=== PATIENT | male | born 1935 | race Caucasian/White ===

== ENCOUNTER 2016-09-09 08:00 | Outpatient (CLI) | payer MEDICARE, OTHER | END 2016-09-09 08:01 | disposition home or self-care (01) | DX: K50.90 Crohn's disease, unspecified, without complications (principal); E78.5 Hyperlipidemia, unspecified; R41.3 Other amnesia ==

== ENCOUNTER 2016-12-15 14:13 | Outpatient (CLI) | payer MEDICARE, OTHER | END 2016-12-15 23:59 | disposition EMS.NT | DX: M25.561 Pain in right knee (principal); W01.0XXA Fall on same level from slipping, tripping and stumbling without subsequent striking against object, initial encounter; Y93.01 Activity, walking, marching and hiking; Y92.481 Parking lot as the place of occurrence of the external cause ==

== ENCOUNTER 2017-03-28 09:54 | Emergency (ER) | payer MEDICARE, OTHER ==
[2017-03-28] MEDS ORDERED: SODIUM CHLORIDE FLUSH 0.9% 10 ML SYRINGE IVP ONE (10:09)
--- NOTE | 2017-03-28 10:20 | XRAY Preliminary Report ---
Exam: XR Chest 1 View IMPRESSION: No acute intrathoracic plain film abnormality. [facility] SITE ID: [id number]
--- NOTE | 2017-03-28 10:23 | XRAY Report ---
EXAM: CHEST RADIOGRAPHY EXAM DATE: 03/28/2017 10:12 AM. CLINICAL HISTORY: Chest pain. COMPARISON: None. TECHNIQUE: 1 view. FINDINGS: Lungs/Pleura: No focal opacities evident. No pleural effusion. No pneumothorax. Mediastinum: Within exam limitations, cardiomediastinal contour is normal. Other: None. IMPRESSION: No acute intrathoracic plain film abnormality. [facility] Referring Provider Line: [phone] SITE ID: [id number]
--- NOTE | 2017-03-28 10:26 | ED Physician Documentation ---
History of Present Illness - Stated complaint Stated Complaint: CHEST PAIN - Chief complaint Chief Complaint: Cardiac - Additonal information Additional information: hx from pt 81 male hx CAD s/p stents awoke this AM with ant chest pain - described as a steady pain, not throbbing stabbing sharp or tearing no NV no sweats alsways a bit SOA but no change from baseline resolved after two hr, possibly due to pt taking alllegra no recent fever cough NVD or leg pain swelling no recent travel feels fine now Review of Systems Constitutional: denies: Fever, Chills Cardiac: reports: Chest pain / pressure. denies: Palpitations Respiratory: denies: Dyspnea (n) GI: denies: Abdominal Pain, Nausea, Vomiting Musculoskeletal: denies: Extremity swelling, Joint swelling Neurologic: denies: Generalized weakness, Focal weakness Endocrine: denies: Easy bruising / bleeding Immunocompromised: denies: Immunocompromised PD PAST MEDICAL HISTORY - Past Medical History Past Medical History: Yes Cardiovascular: Hypertension, High cholesterol, [place] Respiratory: Sleep apnea Endocrine/Autoimmune: None GI: GERD, Crohn's disease : Other HEENT: None Musculoskeletal: None Derm: None Other Past Medical History: crohn's. prostate cancer with seeds but no sx - Past Surgical History Past Surgical History: Yes General: Appendectomy, Bowel surgery, Colonoscopy - Present Medications Home Medications: Ambulatory Orders Medication Instructions Recorded Confirmed Atorvastatin Calcium [Lipitor] 20 mg PO DAILY 01/20/15 01/21/15 Cholecalciferol [Vitamin D3] 1,000 unit PO DAILY 01/20/15 01/21/15 Cyanocobalamin/Folic Acid [Vitamin 5,000 mg PO DAILY 01/20/15 01/21/15 Y73-[id number] Acid Tablet] Fenofibrate Nanocrystallized 160 mg PO DAILY 01/20/15 01/21/15 [Triglide] Hydrocodone/Acetaminophen [Vicodin 1 each PO ONCE PRN 01/20/15 01/20/15 5-300 mg Tablet] Iron 65 mg PO DAILY 01/20/15 01/21/15 Mesalamine [Delzicol] 1,600 mg PO BID 01/20/15 01/21/15 Metoprolol Succinate [Toprol Xl] 50 mg PO DAILY 01/20/15 01/21/15 Multivitamin [Multivitamins] 1 each PO DAILY 01/20/15 01/21/15 Omeprazole 20 mg PO BID 01/20/15 01/21/15 Turmeric Root Extract [Turmeric] 500 mg PO DAILY 01/20/15 01/21/15 - Allergies Allergies/Adverse Reactions: Allergies Allergy/AdvReac Type Severity Reaction Status Date / Time latex Allergy Rash Verified 01/20/15 14:45 Penicillins Allergy Rash Verified 01/20/15 14:45 - Social History Does the pt smoke?: No Smoking Status: Never smoker Does the pt drink ETOH?: Yes Does the pt have substance abuse?: No PD ED PE NORMAL - Vitals Vital signs reviewed: Yes - General General: Alert and oriented X 3 - HEENT HEENT: Atraumatic - Neck Neck: Supple, no meningeal sign - Cardiac Cardiac: RRR - Respiratory Respiratory: No respiratory distress, Clear bilaterally - Abdomen Abdomen: Soft, Non tender - Back Back: Other (small bandaid low L spine from injection yesterday, no redness or swelling) - Extremities Extremities: No edema, No calf tenderness / cord - Neuro Neuro: Alert and oriented X 3, No motor deficit - Psych Psych: Normal mood Results - Vitals Vitals: Vital Signs - 24 hr 03/28/17 03/28/17 03/28/17 10:00 10:03 10:35 Temperature 36.8 C Heart Rate 78 73 Respiratory 18 18 Rate Blood Pressure 144/67 H 145/62 H Blood Pressure 143/61 H [Left] Blood Pressure 159/76 H [Right] O2 Saturation 97 03/28/17 03/28/17 11:35 12:03 Temperature Heart Rate 67 63 Respiratory 18 18 Rate Blood Pressure 135/54 H 106/73 Blood Pressure [Left] Blood Pressure [Right] O2 Saturation 97 98 Oxygen O2 Source Room air - EKG (time done) 1004 Rate: Dmitri (73) Rhythm: NSR [place]: Normal Intervals: Normal [place] QRS: Normal Ischemia: Non specific changes - Labs Labs: Laboratory Tests 03/28/17 03/28/17 03/28/17 10:34 10:34 10:34 WBC 12.7 H RBC 4.87 Hgb 13.8 L Hct 40.9 L MCV 84.1 MCH 28.3 MCHC 33.7 RDW 13.5 Plt Count 225 MPV 7.8 Neut # 10.5 H Lymph # 1.4 L [place] # 0.9 Eos # 0.0 Baso # 0.0 Absolute Nucleated RBC 0.00 Nucleated RBCs 0.0 Sodium 137 Potassium 3.7 Chloride 101 Carbon Dioxide 24 Anion Gap 12.0 BUN 18 Creatinine 1.1 Estimated GFR (MDRD) 64 L Glucose 174 H Calcium 9.5 Total Bilirubin 0.7 AST 26 ALT 18 Alkaline Phosphatase 41 L Troponin I < 0.04 Total Protein 7.6 Albumin 4.0 Globulin 3.6 Albumin/Globulin Ratio 1.1 Lipase 32 03/28/17 11:59 WBC RBC Hgb Hct MCV MCH MCHC RDW Plt Count MPV Neut # Lymph # [place] # Eos # Baso # Absolute Nucleated RBC Nucleated RBCs Sodium Potassium Chloride Carbon Dioxide Anion Gap BUN Creatinine Estimated GFR (MDRD) Glucose Calcium Total Bilirubin AST ALT Alkaline Phosphatase Troponin I < 0.04 Total Protein Albumin Globulin Albumin/Globulin Ratio Lipase - Rads (name of study) CXR Radiology: See rad report (neg) Departure - Departure Disposition: Home, Self Care Clinical Impression: Chest pain Condition: Good Instructions: ED Chest Pain Atypical Unkn Cause Follow-Up: Miguel Angel Rust DO [Primary Care Provider] - Comments: Your heart checked out fine - the EKG and two sets of blood tests do not indicate the pain was a heart attack The xray also did not show any sign or an aneurysm tear of your aorta And based on your exam i do not think your have a blood clot in your lungs I am not sure what did cause the pain, but given the reassuring work up, and since you are feeling better, I think it is safe for you to go home Your blood sugar was a bit high today -m please follow up with your PMD to be tested for diabetes Also your blood pressure was elevated and your should have your PMD recheck that too
[2017-03-28 10:42] LABS: BASOPHILS % (AUTO) 0.3 %; HCT - HEMATOCRIT 40.9 % (42.0-52.0); HGB - HEMOGLOBIN 13.8 g/dL (14.0-18.0); LYMPHOCYTES # (AUTO) 1.4 10^3/uL (1.5-3.5); LYMPHOCYTES % (AUTO) 10.8 %; MEAN CORPUSCULAR HEMOGLOBIN 28.3 pg (27.0-31.0); MEAN CORPUSCULAR HGB CONC 33.7 g/dL (32.0-36.0); MEAN CORPUSCULAR VOLUME 84.1 fL (80.0-94.0); MEAN PLATELET VOLUME 7.8 fL (7.4-11.4); MONOCYTES # (AUTO) 0.9 10^3/uL (0.0-1.0); MONOCYTES % (AUTO) 6.7 %; NEUTROPHILS # (AUTO) 10.5 10^3/uL (1.5-6.6); NEUTROPHILS % (AUTO) 82.2 %; RED BLOOD COUNT 4.87 10^6/uL (4.70-6.10); RED CELL DISTRIBUTION WIDTH 13.5 % (12.0-15.0); UNCORRECTED WHITE BLOOD COUNT 12.7 x10^3/uL; WHITE BLOOD COUNT 12.7 x10^3/uL (4.8-10.8)
[2017-03-28 10:58] LABS: ALBUMIN/GLOBULIN RATIO 1.1 (1.0-2.2); BILIRUBIN,TOTAL 0.7 mg/dL (0.2-1.0); CALCIUM 9.5 mg/dL (8.5-10.3); CREATININE 1.1 mg/dL (0.6-1.2); POTASSIUM 3.7 mmol/L (3.5-5.0); TOTAL PROTEIN 7.6 g/dL (6.7-8.2)
[2017-03-28 12:52] VITALS: BP 127/54
== END 2017-03-28 12:53 | disposition home or self-care (01) ==
LOC: ED 09:54
DX: R07.9 Chest pain, unspecified (principal); I25.10 Atherosclerotic heart disease of native coronary artery without angina pectoris; Z98.61 Coronary angioplasty status; I10 Essential (primary) hypertension; E78.00 Pure hypercholesterolemia, unspecified; I25.2 Old myocardial infarction; G47.30 Sleep apnea, unspecified; K21.9 Gastro-esophageal reflux disease without esophagitis; K50.90 Crohn's disease, unspecified, without complications; Z85.46 Personal history of malignant neoplasm of prostate; R73.9 Hyperglycemia, unspecified
CPT/HCPCS: 36415; 71010; 80053; 83690; 84484; 85025; 93005; 99284

== ENCOUNTER 2017-04-04 11:29 | Outpatient (CLI) | payer MEDICARE, OTHER ==
[2017-04-04 13:13] LABS: BASOPHILS # (AUTO) 0.1 10^3/uL (0.0-0.1); BASOPHILS % (AUTO) 0.9 %; EOSINOPHILS # (AUTO) 0.2 10^3/uL (0.0-0.7); EOSINOPHILS % (AUTO) 2.1 %; HCT - HEMATOCRIT 43.3 % (42.0-52.0); HGB - HEMOGLOBIN 14.5 g/dL (14.0-18.0); LYMPHOCYTES # (AUTO) 2.5 10^3/uL (1.5-3.5); LYMPHOCYTES % (AUTO) 30.2 %; MEAN CORPUSCULAR HEMOGLOBIN 28.4 pg (27.0-31.0); MEAN CORPUSCULAR HGB CONC 33.5 g/dL (32.0-36.0); MEAN CORPUSCULAR VOLUME 84.8 fL (80.0-94.0); MEAN PLATELET VOLUME 8.1 fL (7.4-11.4); MONOCYTES # (AUTO) 0.9 10^3/uL (0.0-1.0); MONOCYTES % (AUTO) 10.3 %; NEUTROPHILS # (AUTO) 4.7 10^3/uL (1.5-6.6); NEUTROPHILS % (AUTO) 56.5 %; NUCLEATED RED BLOOD CELLS AUTO 0.1 /100WBC; RED CELL DISTRIBUTION WIDTH 13.8 % (12.0-15.0); UNCORRECTED WHITE BLOOD COUNT 8.4 x10^3/uL; WHITE BLOOD COUNT 8.4 x10^3/uL (4.8-10.8)
[2017-04-04 13:43] LABS: BILIRUBIN,DIRECT 0.1 mg/dL (0.1-0.5); BILIRUBIN,TOTAL 0.8 mg/dL (0.2-1.0); CREATININE 1.1 mg/dL (0.6-1.2); TOTAL PROTEIN 7.9 g/dL (6.7-8.2)
== END 2017-04-04 11:30 | disposition home or self-care (01) ==
LOC: LAB.WCP 11:29
PROVIDERS: ATTEND Podiatrist
DX: B35.1 Tinea unguium (principal); B35.3 Tinea pedis
CPT/HCPCS: 36415; 80076; 82565; 84520; 85025

== ENCOUNTER 2018-04-18 14:12 | Outpatient (CLI) | payer MEDICARE, OTHER ==
[2018-04-18 18:53] LABS: BASOPHILS # (AUTO) 0.1 10^3/uL (0.0-0.1); EOSINOPHILS # (AUTO) 0.1 10^3/uL (0.0-0.7); EOSINOPHILS % (AUTO) 1.9 %; HGB - HEMOGLOBIN 14.2 g/dL (14.0-18.0); LYMPHOCYTES # (AUTO) 2.1 10^3/uL (1.5-3.5); LYMPHOCYTES % (AUTO) 29.2 %; MEAN CORPUSCULAR HEMOGLOBIN 28.9 pg (27.0-31.0); MEAN CORPUSCULAR HGB CONC 34.1 g/dL (32.0-36.0); MEAN CORPUSCULAR VOLUME 84.7 fL (80.0-94.0); MEAN PLATELET VOLUME 8.5 fL (7.4-11.4); MONOCYTES # (AUTO) 0.7 10^3/uL (0.0-1.0); MONOCYTES % (AUTO) 9.6 %; NEUTROPHILS # (AUTO) 4.2 10^3/uL (1.5-6.6); NEUTROPHILS % (AUTO) 58.3 %; PLT - PLATELET COUNT 211 10^3/uL (130-450); RED BLOOD COUNT 4.91 10^6/uL (4.70-6.10); WHITE BLOOD COUNT 7.2 x10^3/uL (4.8-10.8)
[2018-04-18 19:15] LABS: HB2 TOTAL 14.9 g/dL; HEMOGLOBIN A1C 0.57 g/dL; HEMOGLOBIN A1C % 5.7 % (4.6-6.2)
[2018-04-18 19:16] LABS: ALBUMIN/GLOBULIN RATIO 1.1 (1.0-2.2); ALKALINE PHOSPHATASE 39 IU/L (42-121); ALT ALANINE AMINOTRANSFERASE 21 IU/L (10-60); AST ASPARTATE AMINOTRANSFERASE 27 IU/L (10-42); BILIRUBIN,TOTAL 1.1 mg/dL (0.2-1.0); BUN - BLOOD UREA NITROGEN 20 mg/dL (6-20); CALCIUM 9.4 mg/dL (8.5-10.3); CARBON DIOXIDE - CO2 26 mmol/L (21-32); CHLORIDE 103 mmol/L (101-111); CHOL/HDL RATIO 3.4 (<5.0); CHOLESTEROL 138 mg/dL; GFR - MDRD 72 (>89); GLUCOSE 122 mg/dL (70-100); HDL CHOLESTEROL 41 mg/dL; LDL CHOLESTEROL,CALCULATED 41 mg/dL; SODIUM 139 mmol/L (135-145); TOTAL PROTEIN 7.5 g/dL (6.7-8.2); VLDL CHOLESTEROL 56 mg/dL
== END 2018-04-18 14:13 | disposition home or self-care (01) ==
LOC: LAB.WCP 14:12
PROVIDERS: ATTEND Family Medicine
DX: R07.89 Other chest pain (principal); R73.01 Impaired fasting glucose; E78.5 Hyperlipidemia, unspecified; G62.9 Polyneuropathy, unspecified; E53.8 Deficiency of other specified B group vitamins; D64.9 Anemia, unspecified
CPT/HCPCS: 36415; 80053; 80061; 82607; 83036; 83721; 85025

== ENCOUNTER 2018-07-05 07:58 | Outpatient (CLI) | payer MEDICARE, OTHER ==
[2018-07-05] MEDS ORDERED: IOVERSOL 320 50 ML VIAL ONE (08:11)
[2018-07-05] MEDS ORDERED: IOPAMIDOL-300 100 ML VIAL ONE (08:11)
[2018-07-05] MEDS ORDERED: IOVERSOL 320 50 ML VIAL PO ONE (09:35)
[2018-07-05] MEDS ORDERED: IOPAMIDOL-300 100 ML VIAL IVP ONE (09:35)
--- NOTE | 2018-07-05 13:16 | Nuclear Medicine Report ---
Reason: NEOPLASM OF UNSPECIFIED BEHAVIOR OF OTHER ORGAN Procedure Date: 07/05/2018 Accession Number: [id number] / [id number] Procedure: NM - Bone Whole Body CPT Code: FULL RESULT: EXAM: BONE SCAN EXAM DATE: 07/05/2018 11:47 AM. CLINICAL HISTORY: Prostate cancer. NEOPLASM OF UNSPECIFIED BEHAVIOR OF OTHER ORGAN. COMPARISON: CT abdomen/pelvis 07/05/2018. TECHNIQUE: Following the intravenous administration of 31.5 mCi of technetium 99m MDP and an appropriate delay, a whole-body scan was performed in anterior and posterior projections. Site-specific spot views of the region of interest were obtained in various projections. FINDINGS: Normal renal radiotracer uptake and bladder activity. Normal soft tissue activity. Overall normal osseous uptake. There is intense focal uptake corresponding to right posterior iliac sclerotic lesion by CT, likely metastatic. IMPRESSION: 1. Intense focal uptake at the right posterior iliac bone, likely metastatic. 2. No other abnormal focal uptake. [facility]
--- NOTE | 2018-07-05 15:13 | CT Report ---
Reason: NEOPLASM OF UNSPECIFIED BEHAVIOR OF OTHER ORGAN Procedure Date: 07/05/2018 Accession Number: [id number] / [id number] Procedure: CT - Chest W/ CPT Code: FULL RESULT: EXAM: CT CHEST EXAM DATE: 07/05/2018 09:18 AM. CLINICAL HISTORY: NEOPLASM OF UNSPECIFIED BEHAVIOR OF OTHER ORGAN. COMPARISONS: None. TECHNIQUE: Routine helical CT imaging was performed through the chest. IV contrast: 100 cc Isovue-300. Reconstructions: Coronal and sagittal. In accordance with CT protocol optimization, one or more of the following dose reduction techniques were utilized for this exam: automated exposure control, adjustment of mA and/or KV based on patient size, or use of iterative reconstructive technique. FINDINGS: Lungs/Pleura: No nodules, bronchial thickening, consolidation, or edema. Pulmonary vasculature appears normal. No pericardial or pleural effusion. No pneumothorax. Mediastinum: No adenopathy or masses. The heart and great vessels appear normal. There are atherosclerotic calcifications of the thoracic aorta and coronary arteries. Bones: No bone lesions. Visualized Abdomen: 1 cm nodule of the left adrenal gland is incompletely evaluated. IMPRESSION: Left adrenal nodule is incompletely evaluated. No suspicious findings in other regards. [facility]
--- NOTE | 2018-07-05 15:25 | CT Report ---
Reason: NEOPLASM OF UNSPECIFIED BEHAVIOR OF OTHER ORGAN Procedure Date: 07/05/2018 Accession Number: [id number] / [id number] Procedure: CT - Abdomen/Pelvis W/ CPT Code: FULL RESULT: EXAM: CT ABDOMEN AND PELVIS EXAM DATE: 07/05/2018 09:18 AM. CLINICAL HISTORY: NEOPLASM OF UNSPECIFIED BEHAVIOR OF OTHER ORGAN. COMPARISONS: Abdomen pelvis CT 08/17/2007. TECHNIQUE: Routine helical CT imaging was performed through the abdomen and pelvis. IV contrast: ISOVUE 300 100mL. Enteric contrast: Yes. Reconstructions: Coronal and sagittal. In accordance with CT protocol optimization, one or more of the following dose reduction techniques were utilized for this exam: automated exposure control, adjustment of mA and/or KV based on patient size, or use of iterative reconstructive technique. FINDINGS: Lung Bases: Unremarkable. Liver: Normal contour. No masses. The liver is diffusely low in attenuation suggesting hepatic steatosis. There is a calcified granuloma of the right lobe of the liver. Gallbladder/Bile Ducts: Prior cholecystectomy. Spleen: Normal. Pancreas: Normal. Adrenal Glands: 1 cm left adrenal nodule Kidneys: Normal. No masses or hydronephrosis. Peritoneal Cavity/Bowel: No free fluid, free air or adenopathy. No masses. There is thickening of the transverse colon. There is thickening of a loop of small bowel in the right lower quadrant. Pelvic Organs: There are prostate radiotherapy seeds. The bladder appears unremarkable otherwise. Vasculature: No aneurysms or other significant abnormality. Bones: There is a sclerotic lesion of the right iliac at the sacroiliac joint, a new finding. IMPRESSION: 1. Right iliac sclerotic lesion is concerning for a metastatic focus. 2. There is thickening of the transverse colon and focal thickening of a loop of small bowel in the right lower quadrant. Correlate clinically for enterocolitis. 3. Left adrenal nodule is incomplete characterized. Consider adrenal CT or MRI. [facility]
== END 2018-07-05 07:59 | disposition home or self-care (01) ==
LOC: DI 07:58
PROVIDERS: ATTEND Internal Medicine Nephrology
DX: E27.9 Disorder of adrenal gland, unspecified (principal); M89.9 Disorder of bone, unspecified; K63.89 Other specified diseases of intestine
CPT/HCPCS: 71260; 74177; 78306; Q9967

== ENCOUNTER 2018-09-07 18:23 | Emergency (ER) | payer MEDICARE, OTHER ==
[2018-09-07 18:37] VITALS: BP 157/120
[2018-09-07] MEDS ORDERED: ONDANSETRON ODT 4 MG TABLET TL STA (19:16)
--- NOTE | 2018-09-07 19:18 | ED Physician Documentation ---
PD HPI ABD PAIN - Stated complaint Stated Complaint: VOMITING/BACK PX - Chief complaint Chief Complaint: Abd Pain - History obtained from History obtained from: Patient - History of Present Illness Timing - onset: Other (About 2 weeks ago he fell and injured the left chest wall. He had x-rays at the time that were reportedly negative but he was treated for an occult rib fracture. He saw his physician 2 days ago and was prescribed what sounds like oxycodone. Today he had 5 episodes of vomiting but denies abdominal pain, diarrhea, or changes in his bowel movements. There is no new chest pain except for the lateral chest wall pain that is improving.) Review of Systems Constitutional: denies: Fever, Chills Cardiac: denies: Palpitations Respiratory: denies: Dyspnea, Cough GI: reports: Nausea, Vomiting. denies: Abdominal Pain, Diarrhea PD PAST MEDICAL HISTORY - Past Medical History Cardiovascular: Hypertension, High cholesterol, [place] Respiratory: Sleep apnea Endocrine/Autoimmune: None GI: GERD, Crohn's disease : Other HEENT: None Musculoskeletal: None Derm: None - Past Surgical History Past Surgical History: Yes General: Cholecystectomy, Appendectomy, Bowel surgery, Colonoscopy Cardiovascular: Other - Present Medications Home Medications: Ambulatory Orders Medication Instructions Recorded Confirmed Atorvastatin Calcium [Lipitor] 20 mg PO DAILY 01/20/15 09/07/18 Cholecalciferol [Vitamin D3] 1,000 unit PO DAILY 01/20/15 09/07/18 Cyanocobalamin/Folic Acid [Vitamin 5,000 mg PO DAILY 01/20/15 09/07/18 O04-Gzutl Acid Tablet] Fenofibrate Nanocrystallized 160 mg PO DAILY 01/20/15 09/07/18 [Triglide] Mesalamine [Delzicol] 1,600 mg PO BID 01/20/15 09/07/18 Metoprolol Succinate [Toprol Xl] 50 mg PO DAILY 01/20/15 09/07/18 Multivitamin [Multivitamins] 1 each PO DAILY 01/20/15 09/07/18 Omeprazole 20 mg PO BID 01/20/15 09/07/18 Ibuprofen [Motrin] 800 mg PO Q8H PRN #30 tablet 08/23/18 09/07/18 Ondansetron Odt [Zofran] 4 mg TL Q6H PRN #14 tablet 09/07/18 oxyCODONE [Roxicodone] 10 mg PO Q6H 09/07/18 09/07/18 - Allergies Allergies/Adverse Reactions: Allergies Allergy/AdvReac Type Severity Reaction Status Date / Time latex Allergy Rash Verified 08/23/18 11:23 Penicillins Allergy Rash Verified 08/23/18 11:23 nitrofurantoin AdvReac Unknown Verified 09/07/18 18:37 [From Macrobid] - Social History Does the pt smoke?: No Smoking Status: Never smoker Does the pt drink ETOH?: Yes Does the pt have substance abuse?: No PD ED PE NORMAL - Vitals Vital signs reviewed: Yes - General General: Alert and oriented X 3, No acute distress - Neck Neck: Supple, no meningeal sign, No bony TTP - Cardiac Cardiac: RRR, No murmur - Respiratory Respiratory: No respiratory distress, Clear bilaterally - Abdomen Abdomen: Normal bowel sounds, Soft, Non tender - Extremities Extremities: No edema, No calf tenderness / cord - Neuro Neuro: Alert and oriented X 3, Normal speech - Psych Psych: Normal mood Results - Vitals Vitals: Vital Signs - 24 hr 09/07/18 09/07/18 18:32 19:56 Temperature 36.4 C L Heart Rate 67 63 Respiratory 18 Rate Blood Pressure 157/120 H O2 Saturation 96 93 Oxygen O2 Source Room air - Rads (name of study) L ribs and chest Radiology: EMP read contemporaneously (Multiple left rib fractures) PD MEDICAL DECISION MAKING - ED course ED course: 83-year-old gentleman with a recent fall, at the time the x-rays were reportedly negative but having persistent pain and now vomiting likely related to the pain medications. He did well after the administration of Zofran here in the x-rays confirmed multiple left-sided rib fractures. Departure - Departure Disposition: 01 Home, Self Care Clinical Impression: Vomiting Qualifiers: Vomiting type: unspecified Vomiting Intractability: non-intractable Nausea presence: with nausea Qualified Code(s): R11.2 - Nausea with vomiting, unspecified Multiple fractures of ribs Qualifiers: Encounter type: initial encounter Fracture type: closed Laterality: left Qualified Code(s): S22.42XA - Multiple fractures of ribs, left side, initial encounter for closed fracture Condition: Good Record reviewed to determine appropriate education?: Yes Instructions: ED Nausea Vomiting, ED Fx Rib Prescriptions: Ondansetron Odt [Zofran] 4 mg TL Q6H PRN #14 tablet PRN Reason: Nausea / Vomiting Comments: Call your doctor to arrange a follow-up appointment, make the next available appointment. In the interim, return anytime if worse or if new symptoms develop. Your blood pressure was elevated today on check into the emergency department. This does not mean that you have hypertension, it is a common phenomenon to come to the emergency department and have elevated blood pressure. I recommend that you see your primary care physician within the week to have it rechecked when you are feeling better.
--- NOTE | 2018-09-07 20:06 | XRAY Report ---
Reason: rib inj Procedure Date: 09/07/2018 Accession Number: [id number] / [id number] Procedure: XR - Ribs w/PA Chest LT CPT Code: FULL RESULT: EXAM: LEFT RIB RADIOGRAPHY EXAM DATE: 09/07/2018 07:41 PM. CLINICAL HISTORY: Trauma, pain. COMPARISON: CHEST 2 VIEW PA/LAT 04/18/2018 1:30 PM. TECHNIQUE: 1 view of the chest and 4 views of the ribs. FINDINGS: Bones: Minimally to nondisplaced fractures of posterior lateral left fifth, sixth, seventh, eighth, and probably ninth ribs. Otherwise unremarkable. Lungs: No consolidation, effusion, or pneumothorax. Localized pleural thickening at the level of left rib fractures. Mediastinum: Heart and mediastinal contours are unremarkable. Upper lobe vessels not distended. Other: None. IMPRESSION: Multiple left rib fractures. [facility]
== END 2018-09-07 20:59 | disposition home or self-care (01) ==
LOC: ED 18:23
DX: R11.2 Nausea with vomiting, unspecified (principal); S22.42XA Multiple fractures of ribs, left side, initial encounter for closed fracture; W19.XXXA Unspecified fall, initial encounter; I10 Essential (primary) hypertension; E78.00 Pure hypercholesterolemia, unspecified; I25.2 Old myocardial infarction
CPT/HCPCS: 71101; 99283; Q0162

== ENCOUNTER 2018-09-27 19:22 | Emergency (ER) | payer MEDICARE, OTHER ==
[2018-09-27] MEDS ORDERED: SODIUM CHLORIDE 0.9% 1,000 ML IV ONE (19:53)
--- NOTE | 2018-09-27 20:08 | ED Physician Documentation ---
History of Present Illness - Stated complaint Stated Complaint: VOMITING/COUGH/FEVER - Chief complaint Chief Complaint: Abd Pain - History obtained from History obtained from: Patient, Family - History of Present Illness Timing: How many days ago (2) Pain level max: 0 Pain level now: 0 - Additonal information Additional information: 83-year-old male with a cough for the past 2-3 days. Fever of 102 last night. Has been lightheaded and dizzy and feeling weak today. No fevers today. No hypoxia. Did have recent rib fractures but is no longer having pain. Did receive his influenza vaccine this year. nothing makes it better or worse. Review of Systems Ten Systems: 10 systems reviewed and negative Constitutional: reports: Fever (102), Chills Ears: denies: Ear pain Nose: reports: Rhinorrhea / runny nose, Congestion Throat: denies: Sore throat Cardiac: denies: Chest pain / pressure Respiratory: reports: Cough GI: denies: Abdominal Pain, Nausea, Vomiting, Diarrhea Skin: denies: Rash Musculoskeletal: denies: Neck pain, Back pain Neurologic: denies: Focal weakness, Numbness, Headache PD PAST MEDICAL HISTORY - Past Medical History Cardiovascular: Hypertension, High cholesterol, [place] Respiratory: Sleep apnea Endocrine/Autoimmune: None GI: GERD, Crohn's disease : Other HEENT: None Musculoskeletal: None Derm: None - Past Surgical History Past Surgical History: Yes General: Cholecystectomy, Appendectomy, Bowel surgery, Colonoscopy Cardiovascular: Other - Present Medications Home Medications: Ambulatory Orders Medication Instructions Recorded Confirmed Atorvastatin Calcium [Lipitor] 20 mg PO DAILY 01/20/15 09/07/18 Cholecalciferol [Vitamin D3] 1,000 unit PO DAILY 01/20/15 09/07/18 Cyanocobalamin/Folic Acid [Vitamin 5,000 mg PO DAILY 01/20/15 09/07/18 T27-Jerze Acid Tablet] Fenofibrate Nanocrystallized 160 mg PO DAILY 01/20/15 09/07/18 [Triglide] Mesalamine [Delzicol] 1,600 mg PO BID 01/20/15 09/07/18 Metoprolol Succinate [Toprol Xl] 50 mg PO DAILY 01/20/15 09/07/18 Multivitamin [Multivitamins] 1 each PO DAILY 01/20/15 09/07/18 Omeprazole 20 mg PO BID 01/20/15 09/07/18 Ibuprofen [Motrin] 800 mg PO Q8H PRN #30 tablet 08/23/18 09/07/18 Ondansetron Odt [Zofran] 4 mg TL Q6H PRN #14 tablet 09/07/18 oxyCODONE [Roxicodone] 10 mg PO Q6H 09/07/18 09/07/18 Ondansetron Odt [Zofran] 4 mg TL Q6H PRN #10 tablet 09/27/18 - Allergies Allergies/Adverse Reactions: Allergies Allergy/AdvReac Type Severity Reaction Status Date / Time latex Allergy Rash Verified 09/27/18 19:28 Penicillins Allergy Rash Verified 09/27/18 19:28 nitrofurantoin AdvReac Unknown Verified 09/27/18 19:28 [From Macrobid] - Social History Does the pt smoke?: No Smoking Status: Never smoker Does the pt drink ETOH?: Yes Does the pt have substance abuse?: No PD ED PE NORMAL - Vitals Vital signs reviewed: Yes - General General: Alert and oriented X 3, No acute distress - HEENT HEENT: Ears normal, Moist mucous membranes, Pharynx benign - Neck Neck: Supple, no meningeal sign - Cardiac Cardiac: RRR, Strong equal pulses - Respiratory Respiratory: No respiratory distress, Clear bilaterally - Abdomen Abdomen: Soft, Non tender, Non distended - Back Back: No spinal TTP - Derm Derm: Warm and dry, No rash - Extremities Extremities: No edema - Neuro Neuro: Alert and oriented X 3 - Psych Psych: Normal mood, Normal affect Results - Vitals Vitals: Vital Signs - 24 hr 09/27/18 09/27/18 19:24 21:17 Temperature 36.5 C 38.0 C H Heart Rate 99 76 Respiratory 16 16 Rate Blood Pressure 164/54 H 125/71 O2 Saturation 94 93 Oxygen O2 Source Room air - Labs Labs: Laboratory Tests 09/27/18 09/27/18 09/27/18 20:15 20:15 20:25 WBC 8.9 RBC 4.48 L Hgb 12.6 L Hct 37.5 L MCV 83.8 MCH 28.1 MCHC 33.5 RDW 14.1 Plt Count 140 MPV 7.8 Neut # (Auto) 7.7 H Lymph # (Auto) 0.5 L [place] # (Auto) 0.5 Eos # (Auto) 0.0 Baso # (Auto) 0.1 Absolute Nucleated RBC 0.00 Nucleated RBC % 0.0 Sodium 133 L Potassium 4.0 Chloride 99 L Carbon Dioxide 24 Anion Gap 10.0 BUN 21 H Creatinine 1.3 H Estimated GFR (MDRD) 53 L Glucose 149 H Calcium 9.1 Total Bilirubin 1.2 H AST 45 H ALT 34 Alkaline Phosphatase 44 Total Protein 7.7 Albumin 3.7 Globulin 4.0 Albumin/Globulin Ratio 0.9 L Lipase 32 Urine Color Urine Clarity Urine pH Ur Specific [place] Urine Protein Urine Glucose (UA) Urine Ketones Urine Occult Blood Urine Nitrite Urine Bilirubin Urine Urobilinogen Ur Leukocyte Esterase Urine RBC Urine WBC Ur Squamous Epith Cells Urine Bacteria Urine Casts Ur Microscopic Review Urine Culture Comments Influenza A (Rapid) POSITIVE H Influenza B (Rapid) Negative 09/27/18 20:50 WBC RBC Hgb Hct MCV MCH MCHC RDW Plt Count MPV Neut # (Auto) Lymph # (Auto) [place] # (Auto) Eos # (Auto) Baso # (Auto) Absolute Nucleated RBC Nucleated RBC % Sodium Potassium Chloride Carbon Dioxide Anion Gap BUN Creatinine Estimated GFR (MDRD) Glucose Calcium Total Bilirubin AST ALT Alkaline Phosphatase Total Protein Albumin Globulin Albumin/Globulin Ratio Lipase Urine Color YELLOW Urine Clarity CLEAR Urine pH 5.5 Ur Specific [place] >=1.030 H Urine Protein 30 H Urine Glucose (UA) NEGATIVE Urine Ketones NEGATIVE Urine Occult Blood SMALL H Urine Nitrite NEGATIVE Urine Bilirubin NEGATIVE Urine Urobilinogen 1 (NORMAL) Ur Leukocyte Esterase NEGATIVE Urine RBC 0-5 Urine WBC 0-3 Ur Squamous Epith Cells NONE SEEN Urine Bacteria None Seen Urine Casts 0-2 Hyaline Casts Ur Microscopic Review INDICATED Urine Culture Comments NOT INDICATED Influenza A (Rapid) Influenza B (Rapid) - Rads (name of study) Chest x-ray Radiology: Prelim report reviewed, EMP read contemporaneously, See rad report (No acute disease) PD MEDICAL DECISION MAKING - ED course Complexity details: reviewed results, re-evaluated patient, considered differential, d/w patient, d/w family ED course: 83-year-old male with influenza A. Feels better after IV fluids. Tolerating p.o. without difficulty here. Will prescribe Zofran for home. No acute findings on chest x-ray. No hypoxia. No respiratory distress. We will have him follow-up with his PCP. Patient requesting to go home at this time. Patient and family counseled regarding signs and symptoms for which I believe and urgent re-evaluation would be necessary. Patient with good understanding of and agreement to plan and is comfortable going home at this time This document was made in part using voice recognition software. While efforts are made to proofread this document, sound alike and grammatical errors may occur. Departure - Departure Disposition: 01 Home, Self Care Clinical Impression: Influenza A Condition: Good Instructions: ED Flu Follow-Up: Miguel Angel Rust DO [Primary Care Provider] - Within 1 week Prescriptions: Ondansetron Odt [Zofran] 4 mg TL Q6H PRN #10 tablet PRN Reason: Nausea / Vomiting Comments: Go home and rest. Drink plenty of fluids. Return if you worsen. Discharge Date/Time: 09/27/18 21:21
[2018-09-27] MEDS ORDERED: ONDANSETRON 4 MG/2 ML VIAL IVP STA (20:22)
[2018-09-27 20:27] LABS: BASOPHILS # (AUTO) 0.1 10^3/uL (0.0-0.1); BASOPHILS % (AUTO) 0.7 %; EOSINOPHILS % (AUTO) 0.4 %; HGB - HEMOGLOBIN 12.6 g/dL (14.0-18.0); LYMPHOCYTES # (AUTO) 0.5 10^3/uL (1.5-3.5); LYMPHOCYTES % (AUTO) 5.9 %; MEAN CORPUSCULAR HEMOGLOBIN 28.1 pg (27.0-31.0); MEAN CORPUSCULAR HGB CONC 33.5 g/dL (32.0-36.0); MEAN CORPUSCULAR VOLUME 83.8 fL (80.0-94.0); MEAN PLATELET VOLUME 7.8 fL (7.4-11.4); MONOCYTES # (AUTO) 0.5 10^3/uL (0.0-1.0); MONOCYTES % (AUTO) 6.2 %; NEUTROPHILS # (AUTO) 7.7 10^3/uL (1.5-6.6); NEUTROPHILS % (AUTO) 86.8 %; PLT - PLATELET COUNT 140 10^3/uL (130-450); RED BLOOD COUNT 4.48 10^6/uL (4.70-6.10); RED CELL DISTRIBUTION WIDTH 14.1 % (12.0-15.0); WHITE BLOOD COUNT 8.9 x10^3/uL (4.8-10.8)
--- NOTE | 2018-09-27 20:36 | XRAY Report ---
Reason: cough, fever Procedure Date: 09/27/2018 Accession Number: [id number] / [id number] Procedure: XR - Chest 2 View X-Ray CPT Code: 30105 FULL RESULT: EXAM: CHEST RADIOGRAPHY EXAM DATE: 09/27/2018 08:01 PM. CLINICAL HISTORY: Cough, fever. COMPARISON: RIBS W/PA CHEST LT 09/07/2018 7:27 PM. TECHNIQUE: 2 views. FINDINGS: Lungs/Pleura: No focal opacities evident. No pleural effusion. No pneumothorax. Normal volumes. Mediastinum: Heart and mediastinal contours are unremarkable. Other: None. IMPRESSION: Normal 2-view chest radiography. [facility]
[2018-09-27 20:37] LABS: ALBUMIN 3.7 g/dL (3.2-5.5); ALBUMIN/GLOBULIN RATIO 0.9 (1.0-2.2); BILIRUBIN,TOTAL 1.2 mg/dL (0.2-1.0); CALCIUM 9.1 mg/dL (8.5-10.3); CREATININE 1.3 mg/dL (0.6-1.2); TOTAL PROTEIN 7.7 g/dL (6.7-8.2)
[2018-09-27 21:17] VITALS: BP 125/71
[2018-09-27 21:22] LABS: BILIRUBIN,URINE NEGATIVE (NEGATIVE); GLUCOSE, URINE (UA) NEGATIVE (NEGATIVE); KETONES,URINE (UA) NEGATIVE (NEGATIVE); LEUKOCYTE ESTERASE, URINE NEGATIVE (NEGATIVE); NITRITE,URINE NEGATIVE (NEGATIVE); OCCULT BLOOD,URINE SMALL (NEGATIVE); PH,URINE 5.5 PH (5.0-7.5); PROTEIN,URINE 30 mg/dL (NEGATIVE); UROBILINOGEN,URINE 1 (NORMAL) E.U./dL (NORMAL)
[2018-09-27 21:25] LABS: CLARITY,URINE CLEAR (CLEAR)
[2018-09-27 21:30] LABS: BACTERIA,URINE None Seen /HPF (None Seen); CASTS, URINE 0-2 Hyaline Casts /LPF; RBC,URINE 0-5 /HPF (0-5); SQUAMOUS EPITHELIAL CELL,UR NONE SEEN (<= Few)
== END 2018-09-27 21:21 | disposition home or self-care (01) ==
LOC: ED 19:22
DX: J10.1 Influenza due to other identified influenza virus with other respiratory manifestations (principal); I10 Essential (primary) hypertension; E78.00 Pure hypercholesterolemia, unspecified; I25.2 Old myocardial infarction
CPT/HCPCS: 36415; 71046; 80053; 81001; 81003; 83690; 85025; 87086; 87275; 87276; 96361; 96374; 99283

== ENCOUNTER 2019-05-23 11:31 | Outpatient (CLI) | payer MEDICARE, OTHER ==
--- NOTE | 2019-05-24 11:14 | XRAY Report ---
Reason: LEFT HIP PAIN Procedure Date: 05/23/2019 Accession Number: [id number] / [id number] Procedure: WCP - Hip 1 View LT CPT Code: FULL RESULT: EXAM: LEFT HIP RADIOGRAPHY EXAM DATE: 05/23/2019 12:05 PM. CLINICAL HISTORY: Left hip pain. COMPARISON: HIP BILAT 06/19/2013 12:35 PM, ABDOMEN/PELVIS W/ 07/05/2018 9:18 AM, ABD/PEL 08/17/2007 5:37 PM, LUMBAR PLEXUS 11/22/2013 10:01 AM. TECHNIQUE: 2 views. 2 views were verified. FINDINGS: Mild narrowing at the left hip, without significant osteophytic spurring. Radiotherapy seeds at the prostate as before. Numerous surgical sutures along the right mid to lateral lower abdomen and pelvis. There is a sclerotic lesion in the medial right iliac bone, which is of indeterminate etiology. IMPRESSION: Sclerotic area medial right iliac bone of indeterminate etiology. This could be further evaluated by bone scan or MRI as warranted. Mild degenerative changes at the left hip. RADIA
== END 2019-05-23 23:59 | disposition home or self-care (01) ==
LOC: DI.WCP 11:31 → EDSTATUS 13:45 → DI.WCP 23:59
PROVIDERS: ATTEND Family Medicine
DX: M16.12 Unilateral primary osteoarthritis, left hip (principal); M89.9 Disorder of bone, unspecified; C61 Malignant neoplasm of prostate

== ENCOUNTER 2019-06-20 08:00 | Outpatient (CLI) | payer MEDICARE, OTHER | END 2019-06-20 08:01 | disposition home or self-care (01) | LOC: LAB.WCP 08:00 | PROVIDERS: ATTEND Family Medicine | DX: E53.8 Deficiency of other specified B group vitamins (principal) | CPT/HCPCS: 36415; 82607 ==

== ENCOUNTER 2019-06-25 12:56 | Outpatient (CLI) | payer MEDICARE, OTHER ==
--- NOTE | 2019-06-26 09:57 | Nuclear Medicine Report ---
Reason: PROSTATE ADENOCA, RT PELVIC PAIN Procedure Date: 06/25/2019 Accession Number: [id number] / [id number] Procedure: NM - Bone Whole Body CPT Code: FULL RESULT: EXAM: BONE SCAN EXAM DATE: 06/25/2019 05:05 PM. CLINICAL HISTORY: Prostate adenoca, right pelvic pain. COMPARISON: BONE SCAN 07/05/2018 11:47 AM ABDOMEN/PELVIS W/ 07/05/2018 9:18 AM RIBS W/PA CHEST LT 09/07/2018 7:27 PM. TECHNIQUE: Following the intravenous administration of 31.3 mCi of technetium 99m MDP and an appropriate delay, a whole-body scan was performed in anterior and posterior projections. Site-specific spot views of the region of interest were obtained in various projections. FINDINGS: Exam Quality: Normal overall osseous radiotracer uptake. Physiological tracer uptake in bilateral collecting systems. Skull: No focal uptake. Thorax: No focal lesions in the sternum. There are foci of increased uptake in the left lateral sixth through ninth ribs. Pelvis: Compared to the prior exam, the lesion in the posterior right iliac bone is less intense. Spine: No suspicious focal uptake in the cervical or thoracic or lumbar spine. There are foci of minor degenerative uptake noted in the spine. IMPRESSION: 1. Modestly less intense radiotracer uptake in the posterior right iliac bone ___ metastasis compared to prior. 2. There are new foci of increased uptake in left lateral ribs. Pattern most consistent with posttraumatic etiology. 3. No new suspicious lesions. RADIA
== END 2019-06-25 12:57 | disposition home or self-care (01) ==
LOC: DI 12:56
PROVIDERS: ATTEND Family Medicine
DX: C61 Malignant neoplasm of prostate (principal); C79.51 Secondary malignant neoplasm of bone
CPT/HCPCS: 78306

== ENCOUNTER 2020-02-15 14:55 | Outpatient (CLI) | payer MEDICARE, OTHER ==
--- NOTE | 2020-02-15 15:38 | XRAY Report ---
PROCEDURE: Lumbar Spine 2 View INDICATIONS: LOW BACK PAIN ACUTE,ADENOCARCINOMA,PROSTATE METAST TECHNIQUE: 3 views of the lumbar spine were acquired. COMPARISON: Nuclear medicine bone scan dated 06/25/2019 and MRI of lumbar spine dated 11/22/2013.. FINDINGS: Bones: 5 [id number] vertebrae are present. There is straightening of normal lumbar lordosis. D egenerative endplate changes and bilateral facet arthrosis throughout lumbar spine is seen more promi nent at L3-4 and L4-5 levels. No vertebral body compression fractures. No suspicious bony lesions. Soft tissues: Overlying bowel gas pattern is normal. No suspicious soft tissue calcifications. IMPRESSION: Degenerative disc disease throughout lumbar spine. No acute compression fracture or spon dylolisthesis. No gross suspicious bony lesion. Reviewed by: Ruel Flores MD on 02/15/2020 3:37 PM PDT Approved by: Ruel Flores MD on 02/15/2020 3:37 PM PDT Station ID: [id number]
== END 2020-02-15 14:56 | disposition home or self-care (01) ==
LOC: DI 14:55
PROVIDERS: ATTEND Family Medicine
DX: M51.36 Other intervertebral disc degeneration, lumbar region (principal); M46.96 Unspecified inflammatory spondylopathy, lumbar region
CPT/HCPCS: 72100

== ENCOUNTER 2020-03-18 19:18 | Observation (INO) | payer MEDICARE, OTHER ==
--- NOTE | 2020-03-18 19:31 | ED Physician Documentation ---
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 He says he had clear thoughts and realized he was speaking unintelligibly. This went on for approximately 1 minute and then resolved. He denies having h/o similar symptoms. Review of Systems Constitutional: reports: Reviewed and negative Eyes: reports: Reviewed and negative Ears: reports: Reviewed and negative Nose: reports: Reviewed and negative Throat: reports: Reviewed and negative Cardiac: reports: Reviewed and negative Respiratory: reports: Reviewed and negative GI: reports: Reviewed and negative : reports: Reviewed and negative Skin: reports: Reviewed and negative Musculoskeletal: reports: Reviewed and negative Neurologic: reports: Difficulty speaking. denies: Generalized weakness, Focal weakness, Numbness, Confused, Altered mental status, Headache PD PAST MEDICAL HISTORY - Past Medical History Cardiovascular: Hypertension, High cholesterol, CA Respiratory: Sleep apnea Endocrine/Autoimmune: None GI: GERD, Crohn's disease : Other HEENT: None Musculoskeletal: None Derm: None - Past Surgical History Past Surgical History: Yes General: Cholecystectomy, Appendectomy, Bowel surgery, Colonoscopy Cardiovascular: Other - Present Medications Home Medications: Ambulatory Orders Medication Instructions Recorded Confirmed Atorvastatin Calcium [Lipitor] 20 mg PO DAILY 01/20/15 09/07/18 Cholecalciferol [Vitamin D3] 1,000 unit PO DAILY 01/20/15 09/07/18 Cyanocobalamin/Folic Acid [Vitamin 5,000 mg PO DAILY 01/20/15 09/07/18 [id number] Acid Tablet] Fenofibrate Nanocrystallized 160 mg PO DAILY 01/20/15 09/07/18 [Triglide] Mesalamine [Delzicol] 1,600 mg PO BID 01/20/15 09/07/18 Metoprolol Succinate [Toprol Xl] 50 mg PO DAILY 01/20/15 09/07/18 Multivitamin [Multivitamins] 1 each PO DAILY 01/20/15 09/07/18 Omeprazole 20 mg PO BID 01/20/15 09/07/18 Ibuprofen [Motrin] 800 mg PO Q8H PRN #30 tablet 08/23/18 09/07/18 Ondansetron Odt [Zofran] 4 mg TL Q6H PRN #14 tablet 09/07/18 oxyCODONE [Roxicodone] 10 mg PO Q6H 09/07/18 09/07/18 Ondansetron Odt [Zofran] 4 mg TL Q6H PRN #10 tablet 09/27/18 - Allergies Allergies/Adverse Reactions: Allergies Allergy/AdvReac Type Severity Reaction Status Date / Time latex Allergy Rash Verified 03/18/20 19:36 Penicillins Allergy Rash Verified 03/18/20 19:36 nitrofurantoin AdvReac Unknown Verified 03/18/20 19:36 [From Macrobid] - Social History Does the pt smoke?: No Smoking Status: Never smoker Does the pt drink ETOH?: Yes Does the pt have substance abuse?: No PD ED PE NORMAL - Vitals Vital signs reviewed: Yes - General General: Alert and oriented X 3, No acute distress, Well developed/nourished - HEENT HEENT: PERRL, EOMI, Moist mucous membranes - Neck Neck: Supple, no meningeal sign - Cardiac Cardiac: RRR, No murmur, No gallop, No rub - Respiratory Respiratory: No respiratory distress, Clear bilaterally - Abdomen Abdomen: Soft, Non tender - Derm Derm: Normal color, Warm and dry - Extremities Extremities: No edema - Neuro Neuro: Alert and oriented X 3, 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, No motor deficit, No sensory deficit, Normal speech Eye Opening: Spontaneous Motor: Obeys Commands Verbal: Oriented GCS Score: 15 - Psych Psych: Normal mood, Normal affect NIHSS - Level of Consciousness Level of consciousness: (0) Alert, Keenly responsive LOC Questions: (0) Answers both Q's correct LOC Commands: (0) Performs both correctly - Gaze Best Gaze: (0) Normal - Visual Visual: (0) No loss - Facial Palsy Facial Palsy: (0) Normal, symmetrical movement - Motor Arms (both separate) Motor Arm (right): (0) No drift Motor Arm (left): (0) No drift - Motor Legs (both separate) Motor Leg (right): (0) No drift Motor Leg (left): (0) No drift - Limb Ataxia Limb Ataxia: (0) Absent - Sensory Sensory: (0) Normal - Best Language Best Language: (0) No aphasia - Dysarthria Dysarthria: (0) Normal - Extinction and Inattention (formally neg Extinction and inattention: (0) No abnormality - Total Score/Results Total Score/Result: 0 Results - Vitals Vitals: Vital Signs - 24 hr 03/18/20 03/18/20 03/18/20 19:20 20:00 20:15 Temperature 37.0 C Heart Rate 89 81 84 Respiratory 20 16 18 Rate Blood Pressure 173/80 H 148/81 H 134/93 H O2 Saturation 97 94 84 L 03/18/20 20:37 Temperature Heart Rate 73 Respiratory 18 Rate Blood Pressure 139/69 H O2 Saturation 96 Oxygen O2 Source Room air - EKG (time done) No standard instances Rate: Rate (enter#) (81) Rhythm: NSR, Other (PVCs) [place]: Normal Intervals: Normal MA QRS: Normal Ischemia: Normal ST segments - Labs Labs: Laboratory Tests 03/18/20 03/18/20 03/18/20 19:29 20:05 20:05 WBC 6.0 RBC 4.59 L Hgb 12.9 L Hct 39.6 L MCV 86.3 MCH 28.1 MCHC 32.6 RDW 13.4 Plt Count 183 MPV 10.0 Neut # (Auto) 3.8 Lymph # (Auto) 1.6 [place] # (Auto) 0.5 Eos # (Auto) 0.1 Baso # (Auto) 0.1 Absolute Nucleated RBC 0.00 Nucleated RBC % 0.0 PT 11.9 INR 1.0 APTT 25.8 Sodium Potassium Chloride Carbon Dioxide Anion Gap BUN Creatinine Estimated GFR (MDRD) Glucose POC Whole Bld Glucose 125 H Calcium Magnesium Total Bilirubin AST ALT Alkaline Phosphatase Troponin I High Sens Total Protein Albumin Globulin Albumin/Globulin Ratio Lipase 03/18/20 03/18/20 03/18/20 20:05 20:05 20:05 WBC RBC Hgb Hct MCV MCH MCHC RDW Plt Count MPV Neut # (Auto) Lymph # (Auto) [place] # (Auto) Eos # (Auto) Baso # (Auto) Absolute Nucleated RBC Nucleated RBC % PT INR APTT Sodium 137 Potassium 3.6 Chloride 101 Carbon Dioxide 26 Anion Gap 10.0 BUN 14 Creatinine 1.3 H Estimated GFR (MDRD) 53 L Glucose 112 H POC Whole Bld Glucose Calcium 9.2 Magnesium 2.2 Total Bilirubin 1.2 H AST 30 ALT 16 Alkaline Phosphatase 34 L Troponin I High Sens 4.2 Total Protein 7.2 Albumin 3.9 Globulin 3.3 Albumin/Globulin Ratio 1.2 Lipase 42 - Rads (name of study) CTA head Radiology: Prelim report reviewed, See rad report CTA neck Radiology: Prelim report reviewed, See rad report chest xray Radiology: Prelim report reviewed, See rad report PD MEDICAL DECISION MAKING - ED course Complexity details: reviewed results, re-evaluated patient, considered differential, d/w patient ED course: D/W Dr. Wilson (on-call neurology at [facility]); she recommends admit for observation (can admit to [facility]) and MRI in am. D/W Dr. Virk, will admit to [facility] hospitalist service. Departure - Departure Disposition: ED Place in Observation Clinical Impression: Transient ischemic attack Condition: Stable Discharge Date/Time: 03/18/20 21:56
[2020-03-18] MEDS ORDERED: IOVERSOL 320 100 ML VIAL IVP ONE ×2 (19:40→20:36)
--- NOTE | 2020-03-18 20:11 | CT Report ---
PROCEDURE: ANGIO HEAD W/WO INDICATIONS: garbled speech CONTRAST: IV CONTRAST: Optiray 320 ml: 80 PO CONTRAST: *NO PO CONTRAST TECHNIQUE: Precontrast 4.5 mm thick angled axial sections acquired from the foramen magnum to the vertex. Afte r the administration of intravenous contrast, 1 mm thick sections acquired through the [place] of [place] is. Postcontrast 4.5 mm thick sections then re-acquired from the foramen magnum to the vertex. 3-di mensional ehrvgnd-vdekdlkxn-fojwfkaiil (MIP) and/or volume rendering reformats were acquired of the c entral intracranial vasculature. For radiation dose reduction, the following was used: automated ex posure control, adjustment of mA and/or kV according to patient size. COMPARISON: None. FINDINGS: Image quality: Excellent. Anterior circulation: Intracranial internal carotid arteries are normal in size and flow. The flow within the paired anterior cerebral arteries is normal and symmetric. The flow within the middle cer ebral arteries is normal and symmetric. The anterior communicating artery is seen. No aneurysms are seen. Posterior circulation: Visualized portions of the vertebral arteries demonstrate normal caliber, and join to form a normal appearing basilar artery. Flow within the posterior cerebral arteries is norm al and symmetric. No aneurysms are seen. CSF spaces: Ventricles are normal in size and shape. Basal cisterns are patent. No extra-axial flu id collections. Brain: No midline shift. No intracranial bleeds or masses. Area of hypodensity involving the left i nsular cortex, (6/13). Subtle area of hypodensity in the left parietal lobe, (6/19). Periventricular hypodensity consistent with chronic microvascular ischemic disease. Distal intracranial ICA and verte bral artery athetotic calcification. Skull and face: Calvarium and facial bones appear intact, without suspicious lesions. Sinuses: Visualized sinuses and mastoids are clear. IMPRESSION: 1. No acute intracranial hemorrhage. 2. Small areas of hypodensity in the left insular cortex and left parietal lobe. These could represen t infarcts, age indeterminate. 3. No large vessel occlusion. Results were discussed with Reid Main at 8:09 PM Reviewed by: Imer Betancourt MD on 03/18/2020 8:09 PM PDT Approved by: Imer Betancourt MD on 03/18/2020 8:09 PM PDT Station ID: [id number]
[2020-03-18 20:12] LABS: BASOPHILS # (AUTO) 0.1 10^3/uL (0.0-0.1); EOSINOPHILS # (AUTO) 0.1 10^3/uL (0.0-0.7); EOSINOPHILS % (AUTO) 1.5 %; HGB - HEMOGLOBIN 12.9 g/dL (14.0-18.0); LYMPHOCYTES # (AUTO) 1.6 10^3/uL (1.5-3.5); LYMPHOCYTES % (AUTO) 26.3 %; MEAN CORPUSCULAR HEMOGLOBIN 28.1 pg (27.0-31.0); MEAN CORPUSCULAR HGB CONC 32.6 g/dL (32.0-36.0); MEAN CORPUSCULAR VOLUME 86.3 fL (80.0-94.0); MONOCYTES # (AUTO) 0.5 10^3/uL (0.0-1.0); MONOCYTES % (AUTO) 8.8 %; NEUTROPHILS # (AUTO) 3.8 10^3/uL (1.5-6.6); NEUTROPHILS % (AUTO) 62.1 %; PLT - PLATELET COUNT 183 10^3/uL (130-450); RED BLOOD COUNT 4.59 10^6/uL (4.70-6.10); RED CELL DISTRIBUTION WIDTH 13.4 % (12.0-15.0)
[2020-03-18 20:16] LABS: PT - PROTHROMBIN TIME 11.9 secs (9.9-12.6)
--- NOTE | 2020-03-18 20:18 | CT Report ---
PROCEDURE: ANGIO NECK W INDICATIONS: garbled speech CONTRAST: IV CONTRAST: Optiray 320 ml: 80 PO CONTRAST: *NO PO CONTRAST TECHNIQUE: After the administration of intravenous contrast, 1.5 mm axial sections acquired from the aortic arch to the [place] of [place]. Coronal 3-D maximum intensity projection (MIP) and/or volume rendering ref ormats were then performed. For radiation dose reduction, the following was used: automated exposur e control, adjustment of mA and/or kV according to patient size. COMPARISON: Same day noncontrast head and CTA head. FINDINGS: Image quality: Excellent. Carotid system: The great vessels demonstrate a conventional anatomy as they arise from the aortic a rch. The origins of the common carotid arteries appear patent. The common carotid arteries demonstr ate normal calibers and courses. The bifurcation regions appear normal bilaterally. Less than 50% st enosis in the right ICA. Greater than 50% stenosis in the left ICA, (5/63). Moderate calcified plaque at the carotid bulb bilaterally. Posterior circulation: The origins of the vertebral arteries appear patent. The more superior porti ons of the vertebral arteries demonstrate normal course and caliber. They join to form a normal appe aring basilar artery. Right posterior indicating artery is seen. The left posterior artery is hypopla stic or absent. Soft tissues: Visualized neck soft tissues demonstrate no suspicious abnormalities. The thyroid gla nd is normal in size. Emphysematous change. Bones: No suspicious bony lesions. Visualized cervical spine appears normally aligned. IMPRESSION: 1. No large vessel occlusion. 2. 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 Right ICA stenosis appears to be less than 50%. Moderat e calcified apical plaque at the bulbs bilaterally. -Consider further classification with carotid artery duplex on a nonemergent basis. The estimate of stenosis included in the report of the imaging study was calculated using the NASCET method Reviewed by: Imer Betancourt MD on 03/18/2020 8:16 PM PDT Approved by: Imer Betancourt MD on 03/18/2020 8:16 PM PDT Station ID: [id number]
[2020-03-18 20:24] LABS: PARTIAL THROMBOPLASTIN TIME 25.8 secs (24.9-33.3)
[2020-03-18 20:25] LABS: ALBUMIN 3.9 g/dL (3.2-5.5); ALBUMIN/GLOBULIN RATIO 1.2 (1.0-2.2); BILIRUBIN,TOTAL 1.2 mg/dL (0.2-1.0); CALCIUM 9.2 mg/dL (8.5-10.3); CREATININE 1.3 mg/dL (0.6-1.2); TOTAL PROTEIN 7.2 g/dL (6.7-8.2)
--- NOTE | 2020-03-18 20:36 | XRAY Report ---
PROCEDURE: Chest 1 View X-Ray INDICATIONS: CVA TECHNIQUE: One view of the chest was acquired. COMPARISON: CXR 09/27/2018. CT chest 07/05/2018. FINDINGS: Surgical changes and devices: None. Lungs and pleura: No pleural effusions or pneumothorax. Lungs are clear. Mediastinum: Mediastinal contours appear normal. Heart size is prominent. Bones and chest wall: No suspicious bony lesions. Overlying soft tissues appear unremarkable. IMPRESSION: No acute cardiopulmonary abnormality. Reviewed by: Imer Betancourt MD on 03/18/2020 8:34 PM PDT Approved by: Imer Betancourt MD on 03/18/2020 8:34 PM PDT Station ID: [id number]
[2020-03-18] MEDS ORDERED: SODIUM CHLORIDE FLUSH 0.9% 10 ML SYRINGE IVP PRN (20:44)
[2020-03-18] MEDS ORDERED: ACETAMINOPHEN 325 MG TABLET PO PRN (20:49)
[2020-03-18] MEDS ORDERED: ONDANSETRON 4 MG/2 ML VIAL IVP PRN (20:49)
[2020-03-18] MEDS ORDERED: ASPIRIN CHEW 81 MG TABLET PO STA (20:55)
[2020-03-18] MEDS ORDERED: ATORVASTATIN 40 MG TABLET PO SCH ×2 (21:00→22:00)
--- NOTE | 2020-03-18 21:07 | HISTORY & PHYSICAL EXAMINATION ---
Chief Complaint - Chief Complaint Chief Complaint: Slurred speech. History of Present Illness - Admitted From Admitted From:: Home - History Obtained From Records Reviewed: Yes History obtained from: Patient, Spouse, ER Physician, EMR - History of Present Illness HPI Comment/Other: This is a 84-year-old male with a past medical history significant for coronary artery disease status post stenting, obstructive sleep apnea longer no longer on CPAP, Crohn's disease, prostate cancer currently receiving treatment with leuprolide who presents today after he had a 1 minute episode of slurred/garbled speech. He reports that he was about to have dinner when he was about to start praying and noticed his speech was completely garbled and slurred. Episode lasted 1 minute. He had no facial droop during his episode. He returned to his baseline and has since felt like his usual self. He reports no focal deficits, numbness, tingling, dizziness, lightheadedness, headache, blurry vision. He reports no prior history of stroke. He does take a baby aspirin a day as well as Crestor given his history of coronary artery disease. He reports no chest p ain. He does complain of chronic dyspnea which has been going on for weeks and months. He states he just saw his immigration investigator yesterday for the dyspnea. He has no cough. Denies any sore throat, nasal congestion. He did smoke a pack to 2 packs a day for about 30 years but quit in the 70s. Reports occasional alcohol use. He is normally quite active and ambulates independently. He states he does use a cane from time to time when he has occasional balance issues but this does not occur very frequently. In the emergency department, he is found to be afebrile with temperature of 37 C. His heart rate was 89. Initial blood pressure was 173/80 but this improved to 148/81 on recheck. He was not tachypneic and saturating well on room air. His labs were unremarkable. CTA of the head showed no hemorrhage but did suggest possible old infarcts. There was no large vessel occlusion. His neck CTA showed no large vessel occlusion but did show greater than 50% stenosis in the left internal carotid artery. His chest x-ray is unremarkable. These findings were discussed with neurology who recommended observation for further TIA work-up. Medicine was then consulted for admission. I did discuss goals of care with the patient and he is a full code. History - Past Medical History Cardiovascular: reports: Hypertension, High cholesterol, Coronary artery disease, [place] Respiratory: reports: Sleep apnea Endocrine/Autoimmune: reports: None GI: reports: GERD, Crohn's disease : reports: Other (Prostate cancer) HEENT: reports: None Musculoskeletal: reports: None Derm: reports: None MRSA Hx?: No - Past Surgical History General: reports: Cholecystectomy, Appendectomy, Bowel surgery, Colonoscopy Cardiovascular: reports: Other - Family & Social History Family History Comment/Other: His father had committed suicide. His mother in her mid 80s. He reports no medical history to his knowledge. Living arrangement: At home Living Situation: With spouse/s.o. Social History Notes: He lives at home with his , Jen. He did smoke about a pack to 2 packs a day for 30 years but quit in the 70s. He reports occasional alcohol use. Denies illicit drug use. - POLST Patient has POLST: No Meds/Allgy - Home Medications Home Medications: Ambulatory Orders Medication Instructions Recorded Confirmed Atorvastatin Calcium [Lipitor] 20 mg PO DAILY 01/20/15 09/07/18 Cholecalciferol [Vitamin D3] 1,000 unit PO DAILY 01/20/15 09/07/18 Cyanocobalamin/Folic Acid [Vitamin 5,000 mg PO DAILY 01/20/15 09/07/18 G51-Icyqd Acid Tablet] Fenofibrate Nanocrystallized 160 mg PO DAILY 01/20/15 09/07/18 [Triglide] Mesalamine [Delzicol] 1,600 mg PO BID 01/20/15 09/07/18 Metoprolol Succinate [Toprol Xl] 50 mg PO DAILY 01/20/15 09/07/18 Multivitamin [Multivitamins] 1 each PO DAILY 01/20/15 09/07/18 Omeprazole 20 mg PO BID 01/20/15 09/07/18 Ibuprofen [Motrin] 800 mg PO Q8H PRN #30 tablet 08/23/18 09/07/18 Ondansetron Odt [Zofran] 4 mg TL Q6H PRN #14 tablet 09/07/18 oxyCODONE [Roxicodone] 10 mg PO Q6H 09/07/18 09/07/18 Ondansetron Odt [Zofran] 4 mg TL Q6H PRN #10 tablet 09/27/18 - Allergies Allergies/Adverse Reactions: Allergies Allergy/AdvReac Type Severity Reaction Status Date / Time latex Allergy Rash Verified 03/18/20 19:36 Penicillins Allergy Rash Verified 03/18/20 19:36 nitrofurantoin AdvReac Unknown Verified 03/18/20 19:36 [From Macrobid] Review of Systems - Constitutional Constitutional: denies: Fatigue - Eyes Eyes: denies: Blurred vision, Dipolpia - Ears, Nose & Throat Ears, Nose & Throat: denies: Nasal discharge, Postnasal drainage, Sore throat - Cardiovascular Cariovascular: denies: Palpitations, Chest pain, Lightheadedness, Exertional dyspnea, Decr. exercise tolerance - Respiratory Respiratory: reports: SOB with exertion. denies: Cough, SOB at rest - Gastrointestinal Gastrointestinal: denies: Abdominal pain, Constipation, Diarrhea, Black stools, Bloody stools, Nausea, Vomiting - Genitourinary Genitourinary: denies: Dysuria, Frequency, Hematuria - Musculoskeletal Musculoskeletal: denies: Limited range of motion, Muscle weakness - Integumentary Integumentary: denies: Rash - Neurological Neurological: reports: Slurred speech. denies: General weakness, Focal weakness, Headache, Dizziness, Numbness, Pre-existing deficit - Hematologic/Lymphatic Hematologic/Lymphatic: denies: Bruising, Bleeding tendencies - All Other Systems All Other Systems: reports: Reviewed and negative Prior Level of Functionality: He is independent with his ADLs. Exam - Vital Signs Reviewed Vital Signs: Yes Vital Signs: Vital Signs x48h Temp Pulse Resp BP Pulse Ox 03/18/20 20:37 73 18 139/69 H 96 03/18/20 20:15 84 18 134/93 H 84 L 03/18/20 20:00 81 16 148/81 H 94 03/18/20 19:20 37.0 C 89 20 173/80 H 97 - Physical Exam General Appearance: positive: No acute distress, Mild distress Eyes Bilateral: positive: Normal inspection, PERRL, EOMI, Conjunctivae nml ENT: positive: ENT inspection nml Neck: positive: Nml inspection Respiratory: positive: No respiratory distress. negative: Wheezes, Rales Cardiovascular: positive: Regular rate & rhythm, No murmur, Extrasystoles. negative: Tachycardia, Systolic murmur Abdomen: positive: Nml bowel sounds, Tenderness (Mild tenderness in the left side of the abdomen.), Rebound, Other (Prior incisional scars noted.). negative: Non-tender, Guarding Skin: positive: Warm, Dry Extremities: positive: Full ROM, No pedal edema Neurologic/Psychiatric: positive: Oriented x3, CN's nml (2-12), Motor nml, Sensation nml. negative: Disoriented to person, Disoriented to place, Disoriented to time, Facial droop, Slurred/abnml speech Conclusion/Plan - Problem List (1) Transient ischemic attack Conclusion/Plan: His presentation is consistent with a TIA. CTA of the neck showed left internal carotid artery stenosis greater than 50%. CT of the head showed no hemorrhage but did show small areas of hypodensity in left insular cortex and left parietal lobe which could be old infarcts. We will place him in observation for TIA. Will obtain MRI of the brain tomorrow morning. Given he has been on aspirin at home, we will give him a loading dose of Plavix now and continue monitoring 5 mg daily. Will discuss with neurology tomorrow regarding antiplatelet regimen on discharge. We will increase the dose of his home statin. Check A1c and lipid panel. Will obtain carotid artery duplex. Obtain echocardiogram with bubble study. Monitor on telemetry. Neurochecks. (2) History of coronary artery disease Conclusion/Plan: He reports a prior history of cardiac stenting. He is currently on aspirin and Crestor as well as a beta-isra. His EKG today shows sinus rhythm with occasional PVCs with nonspecific ST segment changes in the lateral leads. His troponin is negative. He has just seen his immigration investigator for his chronic dyspnea and he will continue outpatient follow-up. (3) Crohn's disease Conclusion/Plan: Stable. Continue home mesalamine. (4) Prostate cancer Conclusion/Plan: Stable. Continue outpatient follow-up with his oncologist at the [facility]. (5) Obstructive sleep apnea Conclusion/Plan: Stable. He no longer requires CPAP. - Lab Results Lab results reviewed: Yes Fish Bones: 03/18/20 20:05 03/18/20 20:05 - Diagnostic Imaging Results Diagnostic Imaging Results: positive: Final report reviewed - EKG Results EKG Interpreted Independently: Yes EKG Findings: His EKG shows a sinus rhythm with frequent PVCs. There are nonspecific ST segment changes in the lateral leads. Core Measures - Anticipated LOS I expect patient to be DC'd or transferred within 96 hours.: Yes - Issues Hospital Issues and Management Plan: 84-year-old male presents with slurred speech that has resolved. Concerns for TIA. Will place in observation for MRI, echo, telemetry. Check A1c and lipid panel. - DVT/VTE - Prophylaxis VTE/DVT Device ordered at admit?: Yes VTE/DVT Prophylaxis med ordered at admit?: Yes - Stroke - Rehab Assessment Rehab services assessment to be ordered?: No
[2020-03-18] MEDS ORDERED: CLOPIDOGREL 300 MG TABLET PO STA (21:41)
[2020-03-19] MEDS: SODIUM CHLORIDE FLUSH 0.9% 10 ML SYRINGE IVP SCH ×2 (00:21→08:36)
[2020-03-19 05:27] LABS: BASOPHILS # (AUTO) 0.1 10^3/uL (0.0-0.1); BASOPHILS % (AUTO) 1.5 %; EOSINOPHILS # (AUTO) 0.2 10^3/uL (0.0-0.7); EOSINOPHILS % (AUTO) 3.9 %; HGB - HEMOGLOBIN 13.3 g/dL (14.0-18.0); LYMPHOCYTES # (AUTO) 1.6 10^3/uL (1.5-3.5); LYMPHOCYTES % (AUTO) 30.1 %; MEAN CORPUSCULAR HEMOGLOBIN 28.1 pg (27.0-31.0); MEAN CORPUSCULAR HGB CONC 32.5 g/dL (32.0-36.0); MEAN CORPUSCULAR VOLUME 86.3 fL (80.0-94.0); MEAN PLATELET VOLUME 10.1 fL (7.4-11.4); MONOCYTES # (AUTO) 0.5 10^3/uL (0.0-1.0); MONOCYTES % (AUTO) 10.4 %; NEUTROPHILS # (AUTO) 2.8 10^3/uL (1.5-6.6); NEUTROPHILS % (AUTO) 53.7 %; PLT - PLATELET COUNT 192 10^3/uL (130-450); RED BLOOD COUNT 4.74 10^6/uL (4.70-6.10); RED CELL DISTRIBUTION WIDTH 13.3 % (12.0-15.0); WHITE BLOOD COUNT 5.2 x10^3/uL (4.8-10.8)
[2020-03-19 05:40] LABS: CALCIUM 9.3 mg/dL (8.5-10.3); CREATININE 1.1 mg/dL (0.6-1.2); MAGNESIUM 2.3 mg/dL (1.7-2.8); PHOSPHORUS 3.1 mg/dL (2.5-4.6)
[2020-03-19 05:45] LABS: CHOL/HDL RATIO 3.4 (<5.0); CHOLESTEROL 114 mg/dL; HDL CHOLESTEROL 34 mg/dL; LDL CHOLESTEROL,CALCULATED 31 mg/dL; LDL/HDL RATIO 0.9 (<3.6); VLDL CHOLESTEROL 49 mg/dL
--- NOTE | 2020-03-19 08:59 | Ultrasound Report ---
PROCEDURE: Carotid Doppler Complete INDICATIONS: TIA. TECHNIQUE: Color and pulse Doppler interrogation was performed of both carotid systems, with image documentation and velocity measurements. COMPARISON: Carotid ultrasound 09/28/[address] angiogram neck 03/18/2020. FINDINGS: Right side: Brachial blood pressure: Not measured. Common carotid artery peak systolic velocity: 52 cm/sec. Internal carotid artery peak systolic velocity: 76 cm/sec. Internal carotid artery end diastolic velocity: 16 cm/sec. External carotid artery peak systolic velocity: 84 cm/sec. ICA/CCA peak systolic ratio: 1.46 . Xie scale imaging description: Calcified plaque Percent internal carotid artery stenosis: Less than 50% . Vertebral artery: Flow direction is antegrade. Left side: Brachial blood pressure: Not measured. Common carotid artery peak systolic velocity: 74 cm/sec. Internal carotid artery peak systolic velocity: 115 cm/sec. Internal carotid artery end diastolic velocity: 21 cm/sec. External carotid artery peak systolic velocity: 55 cm/sec. ICA/CCA peak systolic ratio: 1.55 . Xie scale imaging description: Calcified plaque Percent internal carotid artery stenosis: Less than 50% . Vertebral artery: Flow direction is antegrade. IMPRESSION: Less than 50% stenosis of the origins of the right and left internal carotid arteries. The estimate of stenosis included in the report of the imaging study was calculated using the NASCET method Reviewed by: Lo Marie MD, PhD on 03/19/2020 8:58 AM PDT Approved by: Lo Marie MD, PhD on 03/19/2020 8:58 AM PDT Station ID: [id number]
[2020-03-19] MEDS ORDERED: CLOPIDOGREL 75 MG TABLET PO SCH (09:00)
[2020-03-19] MEDS ORDERED: ASPIRIN CHEW 81 MG TABLET PO SCH (09:00)
[2020-03-19] MEDS ORDERED: ENOXAPARIN 40 MG/0.4 ML SYRINGE SUBQ SCH (09:00)
--- NOTE | 2020-03-19 11:59 | MRI Report ---
PROCEDURE: Brain W/O INDICATIONS: Neuro deficit; slurred speech TECHNIQUE: Noncontrast axial T1 spin echo, axial T2 fast spin echo, sagittal and axial FLAIR, coronal T2 fast sp in echo, axial gradient echo, axial diffusion and ADC through the brain. COMPARISON: None. FINDINGS: Image quality: Excellent. There is severe global cerebral volume loss with passive expansion of the ventricles and extra axial spaces. No definite regional or lobar predilection to the volume loss is identified. There is a severe chronic microvascular ischemic change, manifest as extensive and confluent T2 signa l abnormality throughout the cerebral hemispheric white matter, also present to a lesser degree withi n the midbrain and vidhya. Signal abnormality is present within the mesial temporal lobes bilaterally a nd there is some mesial temporal lobe atrophy. The major intracranial vascular flow-related signal voids are maintained. There is no abnormal extra- axial fluid collection. No findings of mass effect or midline shift. No restricted diffusion to sugge st recent ischemia. No findings of chronic infarct. Ventricular system and basilar cisterns are paten t. No acute orbital abnormality. Paranasal sinuses and mastoid air cells are clear. IMPRESSION: Severe global cerebral volume loss and severe chronic microvascular ischemic changes. Findings may re present under degenerative diagnosis, although imaging features are not suggestive of a specific diso rder. Reviewed by: Aleksandar Angel MD on 03/19/2020 11:58 AM PDT Approved by: Aleksandar Angel MD on 03/19/2020 11:58 AM PDT Station ID: [id number]
--- NOTE | 2020-03-19 12:44 | PHARMACY PROGRESS NOTE ---
- Best Possible Medication History Admit Date and Time: 03/18/202043 Processed by: Pharmacy Medication History completed: Yes Patient Interview: Completed Secondary Source(s): Pharmacy records, Insurance records (PATIENT INTERVIEWED BY PHARMACY. PATIENT CONFIRMED HIS HOME MEDICATIONS ) As the person ultimately responsible for medication therapy, providers are able to order a medication from an existing home medication list in [facility] via the "Reconcile Routine" prior to Confirmation of that medication by it support consultant. Such practice is discouraged except when the physician, in their clinical judgment, deems that a medical need exists for a medication without regard to previous use.
[2020-03-19] MEDS ORDERED: ATORVASTATIN 40 MG TABLET PO SCH (12:45)
[2020-03-19 13:12] VITALS: BP 121/66
--- NOTE | 2020-03-19 13:29 | Discharge Plan ---
Discharge Plan Problem Reviewed?: Yes Disposition: Home, Self Care Condition: Stable Prescriptions: Clopidogrel [Plavix] 75 mg PO DAILY #30 tablet Diet: Regular Activity Restrictions: Activity as Tolerated Shower Restrictions: No Driving Restrictions: No Health Concerns: You presented to our hospital with a momentary loss of speech ability. But there is no paralysis, no passing out. We felt that you are having a transient ischemic attack (TIA) and placed you under observation. A CAT scan of your head done with a dye study of all arteries of your head showed only one area of mild concern where a greater than 50% blockage on the left artery of your neck was present. However this is not enough to operate on. MRI of the head showed global loss of brain volume, a fancy way of saying that your brain has shrunk. But there was no stroke. As such we do think you had a TIA not a stroke. Plan of Treatment: 1. The treatment for reducing risk of stroke is a baby aspirin a day, a cholesterol pill, and sometimes a stronger medicine than aspirin called Plavix. As such we are sending you home on Plavix and to continue cholesterol pill. 2. This will be for [address] Rust if you should continue to after 90 days or stop it. Care Goals: 1. To reduce your risk of stroke 2. To maintain current baseline activities Assessment: Patient understands goals. Asked me to send prescriptions to [facility]. He and his family member at the bedside understand and promised to follow through. No Smoking: If you smoke, Please STOP! Call for help. Follow-up with: Miguel Angel Rust DO [Primary Care Provider] -
--- NOTE | 2020-03-22 17:05 | DISCHARGE SUMMARY ---
"Discharge Summary Admit Date: 03/18/20 Discharge Date: 03/19/20 Discharging Provider: Mayte Wynn MD Primary Care Provider: Miguel Angel Rust MD Code Status: Do Not Attempt Resuscitation Condition at Discharge: Stable Discharge Disposition: 01 Home, Self Care - DIAGNOSES Discharge Diagnoses with Status of Each Condition: 1. TIA 2. History of coronary artery disease 3. Crohn's disease 4. prostate cancer 5. obstructive sleep apnea - HPI History of Present Illness: This is a 84-year-old male with a past medical history significant for coronary artery disease status post stenting, obstructive sleep apnea longer no longer on CPAP, Crohn's disease, prostate cancer currently receiving treatment with leuprolide who presents today after he had a 1 minute episode of slurred/garbled speech. He reports that he was about to have dinner when he was about to start praying and noticed his speech was completely garbled and slurred. Episode lasted 1 minute. He had no facial droop during his episode. He returned to his baseline and has since felt like his usual self. He reports no focal deficits, numbness, tingling, dizziness, lightheadedness, headache, blurry vision. He reports no prior history of stroke. He does take a baby aspirin a day as well as Crestor given his history of coronary artery disease. He reports no chest pain. He does complain of chronic dyspnea which has been going on for weeks and months. He states he just saw his ground worker yesterday for the dyspnea. He has no cough. Denies any sore throat, nasal congestion. He did smoke a pack to 2 packs a day for about 30 years but quit in the 70s. Reports occasional alcohol use. He is normally quite active and ambulates independently. He states he does use a cane from time to time when he has occasional balance issues but this does not occur very frequently. In the emergency department, he is found to be afebrile with temperature of 37 C. His heart rate was 89. Initial blood pressure was 173/80 but this improved to 148/81 on recheck. He was not tachypneic and saturating well on room air. His labs were unremarkable. CTA of the head showed no hemorrhage but did suggest possible old infarcts. There was no large vessel occlusion. His neck CTA showed no large vessel occlusion but did show greater than 50% stenosis in the left internal carotid artery. His chest x-ray is unremarkable. These findings were discussed with neurology who recommended observation for further TIA work-up. Medicine was then consulted for admission. I did discuss goals of care with the patient and he is a full code. History - Past Medical History Cardiovascular: reports: Hypertension, High cholesterol, Coronary artery disease, [place] Respiratory: reports: Sleep apnea Endocrine/Autoimmune: reports: None GI: reports: GERD, Crohn's disease : reports: Other (Prostate cancer) HEENT: reports: None Musculoskeletal: reports: None Derm: reports: None MRSA Hx?: No - Past Surgical History General: reports: Cholecystectomy, Appendectomy, Bowel surgery, Colonoscopy Cardiovascular: reports: Other - CONSULTS | PROCEDURES Procedures: 1. Angios head with and without. No acute intracranial hemorrhage. Small areas of hypodensity in the left insular cortex and left parietal lobe representing age-indeterminate infarcts. No large vessel occlusion. 2. Krystin of neck with no large vessel occlusion. Does have greater than 50% stenosis in the left internal carotid. Right internal carotid appears to be less than 50%. Moderate calcified apical plaques and bulbs bilaterally. 3. Chest x-ray without acute cardiopulmonary changes 4. Carotid Dopplers with less than 50% stenosis of the origins of the right and left internal carotid arteries. 5. Brain MRI. Severe global cerebral volume loss and severe chronic microvascular changes. Severe microvascular changes. No old infarct seen. 6. Triglyceride 243, cholesterol 114, LDL 31, HDL 34. 7. Vitamin B12 246. 8. Echocardiogram, preliminary report and final must be reviewed. Ejection fraction 55 to 60%. Mild concentric left ventricular hypertrophy. Impaired relaxation consistent with grade 1 diastolic dysfunction. There are regional wall motion abnormalities with hypokinesis of the basal and mid inferior coronary artery segments. Right ventricle normal. Atrial size normal. Focal aortic sclerosis without aortic stenosis. Moderate aortic regurgitation. Mild tricuspid regurgitation. RVSP at rest 29 mmHg. - HOSPITAL COURSE Hospital Course: Patient was observed on telemetry overnight. There is no arrhythmia as we look for atrial fibrillation in a patient with possible stroke. On the day of discharge she had no further recurrence of his symptoms. Was ambulating in the room without any assistance. Eat team his breakfast. MRI was discussed with he and his . At discharge temperature was 37.1. Pulse 52. Blood pressure 121/66. R espirations 14 and unlabored. 95% on room air. He is 5 foot 9 inches tall weighs 83.5 kg. A stocky elderly white male in no acute distress. Neck was supple without carotid bruits. Lungs were clear to auscultation and percussion. PMI was normally placed with a regular rate and rhythm and I did not hear any murmurs. Abdomen was soft, nontender. Extremities were without edema. Patient was sent home in stable condition. Asked to follow-up with his primary care provider. Plavix was started. This can be for anywhere from 30 to 90 days. At that time he is to discuss with his primary care provider if he stays on Plavix or aspirin but not both. - ALLERGIES Allergies/Adverse Reactions: Allergies Allergy/AdvReac Type Severity Reaction Status Date / Time latex Allergy Rash Verified 03/18/20 19:36 Penicillins Allergy Rash Verified 03/18/20 19:36 nitrofurantoin AdvReac Unknown Verified 03/18/20 19:36 [From Macrobid] - MEDICATIONS Home Medications: Ambulatory Orders Medication Instructions Recorded Confirmed Fenofibrate Nanocrystallized 160 mg PO DAILY 01/20/15 03/19/20 [Triglide] Mesalamine [Delzicol] 800 mg PO BID 01/20/15 03/19/20 Metoprolol Succinate [Toprol Xl] 50 mg PO DAILY 01/20/15 03/19/20 Omeprazole 20 mg PO BID 01/20/15 03/19/20 Alfuzosin HCl [Alfuzosin HCl ER] 10 mg PO DAILY 03/19/20 03/19/20 Calcium Carbonate/Vitamin D3 1 tab PO DAILY 03/19/20 03/19/20 [Calcium 500 mg-Vit D3 600 Unit] Clopidogrel [Plavix] 75 mg PO DAILY #30 tablet 03/19/20 Nitroglycerin 0.4 mg PO 1-2XD PRN 03/19/20 03/19/20 Rosuvastatin Calcium 20 mg PO QPM 03/19/20 03/19/20 - LABS Result Diagrams: 03/19/20 05:00 03/19/20 05:00"
== END 2020-03-19 13:40 | disposition home or self-care (01) ==
LOC: ED 19:18 → MS2 20:44
PROVIDERS: ADMIT Internal Medicine; ATTEND Specialist
DX: G45.9 Transient cerebral ischemic attack, unspecified (principal); R47.81 Slurred speech; R06.02 Shortness of breath; I25.10 Atherosclerotic heart disease of native coronary artery without angina pectoris; I25.2 Old myocardial infarction; I49.3 Ventricular premature depolarization; I65.23 Occlusion and stenosis of bilateral carotid arteries; I10 Essential (primary) hypertension; I07.1 Rheumatic tricuspid insufficiency; E78.00 Pure hypercholesterolemia, unspecified; K50.90 Crohn's disease, unspecified, without complications; C61 Malignant neoplasm of prostate; G47.33 Obstructive sleep apnea (adult) (pediatric); Z79.82 Long term (current) use of aspirin; Z79.899 Other long term (current) drug therapy; Z87.891 Personal history of nicotine dependence; Z95.5 Presence of coronary angioplasty implant and graft
CPT/HCPCS: 36415; 70496; 70498; 70551; 71045; 80048; 80053; 80061; 81599; 82607; 83690; 83735; 84100; 84484; 85025; 85610; 85730; 93005; 93306; 93880; 96372; 99285; A9270; J1650; Q9967; 83036; 83721

== ENCOUNTER 2020-03-25 15:28 | Observation (INO) | payer MEDICARE, OTHER ==
--- NOTE | 2020-03-25 15:38 | ED Physician Documentation ---
PD HPI CHEST PAIN - Stated complaint Stated Complaint: CHEST PAIN - History obtained from History obtained from: Patient, EMS - Additional information Additional information: 84-year-old gentleman with remote history of coronary artery stenting about 20 years ago presents with chest pain. About 120 this afternoon he was sitting at his desk on the computer and developed mild substernal chest heaviness that subsequently radiated down to the abdomen and then back up to the chest. He took a total of 5 nitroglycerin at home which he just received a prescription for 2 days ago from his geospatial technician at a routine visit without symptoms. Now he has a headache. The chest pain is persistent but very mild. He feels slightly short of breath with it. He denies back pain. No leg pain or leg swelling. Of note he was treated and released here about a week ago for a TIA After an overnight stay Review of Systems Ten Systems: 10 systems reviewed and negative Constitutional: denies: Fever, Chills Throat: denies: Dental pain / toothache, Sore throat Cardiac: reports: Chest pain / pressure. denies: Palpitations, Pedal edema, Calf pain Respiratory: reports: Dyspnea. denies: Cough GI: reports: Abdominal Pain (gone) PD PAST MEDICAL HISTORY - Past Medical History Cardiovascular: Hypertension, High cholesterol, [place] Respiratory: Sleep apnea Endocrine/Autoimmune: None GI: GERD, Crohn's disease : Other HEENT: None Musculoskeletal: None Derm: None - Past Surgical History Past Surgical History: Yes General: Cholecystectomy, Appendectomy, Bowel surgery, Colonoscopy Cardiovascular: Other - Present Medications Home Medications: Ambulatory Orders Medication Instructions Recorded Confirmed Fenofibrate Nanocrystallized 160 mg PO DAILY 01/20/15 03/19/20 [Triglide] Mesalamine [Delzicol] 800 mg PO BID 01/20/15 03/19/20 Metoprolol Succinate [Toprol Xl] 50 mg PO DAILY 01/20/15 03/19/20 Omeprazole 20 mg PO BID 01/20/15 03/19/20 Alfuzosin HCl [Alfuzosin HCl ER] 10 mg PO DAILY 03/19/20 03/19/20 Calcium Carbonate/Vitamin D3 1 tab PO DAILY 03/19/20 03/19/20 [Calcium 500 mg-Vit D3 600 Unit] Clopidogrel [Plavix] 75 mg PO DAILY #30 tablet 03/19/20 Nitroglycerin 0.4 mg PO 1-2XD PRN 03/19/20 03/19/20 Rosuvastatin Calcium 20 mg PO QPM 03/19/20 03/19/20 - Allergies Allergies/Adverse Reactions: Allergies Allergy/AdvReac Type Severity Reaction Status Date / Time latex Allergy Rash Verified 03/25/20 15:41 Penicillins Allergy Rash Verified 03/25/20 15:41 nitrofurantoin AdvReac Unknown Verified 03/25/20 15:41 [From Macrobid] - Social History Does the pt smoke?: No Smoking Status: Never smoker Does the pt drink ETOH?: Yes Does the pt have substance abuse?: No - POLST Patient has POLST: No PD ED PE NORMAL - Vitals Vital signs reviewed: Yes - General General: Alert and oriented X 3, No acute distress - HEENT HEENT: PERRL, EOMI - Neck Neck: Supple, no meningeal sign, No bony TTP - Cardiac Cardiac: RRR, No murmur, Other (a lot of PVCs) - Respiratory Respiratory: No respiratory distress, Clear bilaterally - Abdomen Abdomen: Other (Multiple abdominal surgical scars all well-healed without significant tenderness.) - Back Back: No CVA TTP, No spinal TTP - Derm Derm: Normal color, Warm and dry - Extremities Extremities: No edema, No calf tenderness / cord - Neuro Neuro: Alert and oriented X 3, Normal speech Results - Vitals Vitals: Vital Signs - 24 hr 03/25/20 03/25/20 15:35 15:42 Temperature 35.6 C L Heart Rate 84 78 Respiratory 16 16 Rate Blood Pressure 130/85 H 130/85 H O2 Saturation 100 100 Oxygen O2 Source Nasal cannula - EKG (time done) 1531 Rate: Rate (enter#) (91) Rhythm: NSR (with PVCs) Elsie: Normal Intervals: Normal AK Ischemia: Non specific changes Computer interpretation: Agree with computer - Labs Labs: Laboratory Tests 03/25/20 03/25/20 03/25/20 15:41 15:41 15:41 WBC 5.5 RBC 4.82 Hgb 13.5 L Hct 41.1 L MCV 85.3 MCH 28.0 MCHC 32.8 RDW 13.2 Plt Count 198 MPV 9.7 Neut # (Auto) 3.3 Lymph # (Auto) 1.6 [place] # (Auto) 0.5 Eos # (Auto) 0.1 Baso # (Auto) 0.1 Absolute Nucleated RBC 0.00 Nucleated RBC % 0.0 Sodium 137 Potassium 3.6 Chloride 101 Carbon Dioxide 25 Anion Gap 11.0 BUN 12 Creatinine 1.4 H Estimated GFR (MDRD) 48 L Glucose 146 H Calcium 9.4 Total Bilirubin 1.3 H AST 41 ALT 17 Alkaline Phosphatase 29 L Troponin I High Sens 2.6 Total Protein 7.6 Albumin 4.0 Globulin 3.6 Albumin/Globulin Ratio 1.1 Lipase 58 H PD MEDICAL DECISION MAKING - ED course ED course: This is an 84-year-old gentleman with known Coronary disease disease with stents who presents with moderately suspicious rest pain.Troponin is negative and there is no ST elevation or depression. Spoke with Dr. Webb for observation, rule out [place] and likely stress testing at 4:26 PM. Departure - Departure Disposition: ED Place in Observation Clinical Impression: Atypical chest pain Condition: Fair
[2020-03-25 15:49] LABS: BASOPHILS # (AUTO) 0.1 10^3/uL (0.0-0.1); BASOPHILS % (AUTO) 1.4 %; EOSINOPHILS # (AUTO) 0.1 10^3/uL (0.0-0.7); EOSINOPHILS % (AUTO) 1.6 %; HGB - HEMOGLOBIN 13.5 g/dL (14.0-18.0); LYMPHOCYTES # (AUTO) 1.6 10^3/uL (1.5-3.5); LYMPHOCYTES % (AUTO) 28.8 %; MEAN CORPUSCULAR HGB CONC 32.8 g/dL (32.0-36.0); MEAN CORPUSCULAR VOLUME 85.3 fL (80.0-94.0); MEAN PLATELET VOLUME 9.7 fL (7.4-11.4); MONOCYTES # (AUTO) 0.5 10^3/uL (0.0-1.0); NEUTROPHILS # (AUTO) 3.3 10^3/uL (1.5-6.6); PLT - PLATELET COUNT 198 10^3/uL (130-450); RED BLOOD COUNT 4.82 10^6/uL (4.70-6.10); RED CELL DISTRIBUTION WIDTH 13.2 % (12.0-15.0); WHITE BLOOD COUNT 5.5 x10^3/uL (4.8-10.8)
[2020-03-25 16:00] LABS: ALBUMIN/GLOBULIN RATIO 1.1 (1.0-2.2); BILIRUBIN,TOTAL 1.3 mg/dL (0.2-1.0); CALCIUM 9.4 mg/dL (8.5-10.3); CREATININE 1.4 mg/dL (0.6-1.2); TOTAL PROTEIN 7.6 g/dL (6.7-8.2)
--- NOTE | 2020-03-25 16:17 | XRAY Report ---
PROCEDURE: Chest 1 View X-Ray INDICATIONS: chest pain TECHNIQUE: One view of the chest was acquired. COMPARISON: 03/18/2020 FINDINGS: Surgical changes and devices: None. Lungs and pleura: No pleural effusions or pneumothorax. Lungs are clear. Lungs are hyperinflated joel ggesting COPD. Mediastinum: Mediastinal contours appear normal. Heart size is normal. Bones and chest wall: Chronic appearing left rib fractures. No suspicious bony lesions. Overlying s oft tissues appear unremarkable. IMPRESSION: No acute cardiopulmonary disease process. Reviewed by: Lo Marie MD, PhD on 03/25/2020 4:16 PM PDT Approved by: Lo Marie MD, PhD on 03/25/2020 4:16 PM PDT Station ID: [id number]
[2020-03-25] MEDS ORDERED: IOVERSOL 320 100 ML VIAL IVP ONE ×2 (17:01→20:24)
[2020-03-25] MEDS ORDERED: ONDANSETRON 4 MG/2 ML VIAL IVP PRN (17:01)
[2020-03-25] MEDS ORDERED: ACETAMINOPHEN 325 MG TABLET PO PRN (17:01)
[2020-03-25] MEDS ORDERED: SODIUM CHLORIDE FLUSH 0.9% 10 ML SYRINGE IVP PRN (17:01)
[2020-03-25] MEDS ORDERED: NITROGLYCERIN SL 0.4 MG TABLET SL PRN (17:06)
--- NOTE | 2020-03-25 17:27 | PHARMACY PROGRESS NOTE ---
- Best Possible Medication History Admit Date and Time: 03/25/20 1626 Processed by: Pharmacy Medication History completed: Yes Secondary Source(s): Previous admit records As the person ultimately responsible for medication therapy, providers are able to order a medication from an existing home medication list in [facility] via the "Reconcile Routine" prior to Confirmation of that medication by software support engineer. Such practice is discouraged except when the physician, in their clinical judgment, deems that a medical need exists for a medication without regard to previous use.
--- NOTE | 2020-03-25 18:18 | HISTORY & PHYSICAL EXAMINATION ---
DATE OF SERVICE: 03/25/2020 Physician: Sophia Webb MD HISTORY OF PRESENT ILLNESS: This is an 84-year-old white male with a history of coronary artery disease with remote stenting done maybe 20 years ago, he thinks. There is also a history of prior [place], elevated cholesterol and triglyceride levels (the triglycerides have been in the 700s and he has known this for 20 years), history of sleep apnea, no longer on a CPAP device for unknown reasons, history of GERD, Crohn's disease and prostate cancer. The patient was also in Observation status overnight here 1 week ago for a TIA and his symptoms were garbled speech, which resolved. The work-up showed a mild carotid stenosis. The patient was put on Plavix, and he stopped taking his daily aspirin. Over the past 2 weeks, there has been increasing dyspnea on exertion at just 2 blocks of walking, but no orthopnea. No leg edema. He has seen his doctor about this, approximately a week ago, and was started on sublingual nitroglycerin and educated how to use it. He does not describe any other testing was ordered to evaluate the new dyspnea. This morning, while sitting and working on the computer, he developed anterior chest pressure across the entire chest for which he took sublingual nitroglycerin and repeated it every 5 minutes x3 total, and he stated that this resulted in the chest pain being relieved, but then he felt the same symptom in the right lower quadrant. When he came to the emergency room, all the symptoms were gone. He has not had them recur. At rest, he denies any dyspnea. PAST MEDICAL HISTORY: CAD, old [place], stents, hypertriglyceridemia, sleep apnea not on CPAP, GERD, Crohn's disease, prostate cancer, on treatment. ALLERGIES: LATEX, PENICILLIN AND NITROFURANTOIN. MEDICATIONS 1. Plavix 75 mg daily. 2. Alfuzosin 10 mg daily. 3. Calcium carbonate with vitamin D3 daily. 4. Toprol-XL 50 mg daily. 5. Omeprazole 20 mg b.i.d. 6. Fenofibrate 160 mg daily. 7. Mesalamine 800 mg b.i.d. 8. Sublingual nitroglycerin p.r.n. 9. Crestor 20 mg every night. FAMILY HISTORY: Negative for coronary artery disease. SOCIAL HISTORY: The patient is an ex-smoker who quit in the , drinks rare alcohol. No illicit drug use. The patient is retired, lives with his , is minimally active, especially in the last 2 weeks because of dyspnea. REVIEW OF SYSTEMS: The patient states he has a "sweet tooth" and the confirms this. He puts 3 spoonfuls of sugar in each cup of coffee and eats a lot of cookies. He claims he was never told to decrease sweets in order to treat the high triglycerides. When he was here 1 week ago, the A1c was 5.9. A comprehensive review of systems was performed, and the pertinent positives are listed above, the rest are negative. PHYSICAL EXAMINATION GENERAL: Elderly white male. He is in no distress. VITAL SIGNS: Blood pressure 130/85, heart rate 85 in sinus rhythm, afebrile, room air saturation 100%. HEENT: Unremarkable. NECK: No JVD or carotid bruits. CHEST: Clear. HEART: Normal heart sounds. No audible murmur. ABDOMEN: Soft, nontender. No bruit. No organomegaly. EXTREMITIES: No clubbing, cyanosis or edema. NEUROLOGIC: Grossly intact. LABORATORY DATA: Normal electrolytes, BUN 12, creatinine 1.4. His creatinine from a week ago was 1.1 and 1.3. White blood count 5.5, hemoglobin 13.5, platelet count normal at 198. No INR was done. Troponin-hs normal. CHEST X-RAY: No active cardiopulmonary disease. EKG: Normal sinus rhythm, rate of 90. Frequent ventricular couplets. Small inferior Q-waves are present, and there are biphasic T waves seen in all leads. This is similar to his last EKG from a week ago. A week ago, his Echo showed preserved left ventricular ejection fraction of 55- 60%, but hypokinesis of the basal and mid inferior wall was seen. There was also moderate aortic regurgitation, trace tricuspid regurgitation with normal RV systolic pressure of 29 mmHg, and normal aortic root diameter of 3.1 - 3.4 cm. IMPRESSION/DIAGNOSES 1. Chest pain. 2. Abdominal pain. 3. History of coronary artery disease. 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 5. Hypertriglyceridemia. 6. Chronic kidney disease. 7. Abnormal EKG. 8. History of Crohn's disease on treatment. PLAN: Place the patient in Observation status on telemetry. Cycle troponins. An Echo will not need to be repeated, since it was just done 6 days ago. Obtain a CT angio of the chest and abdomen to evaluate the aorta for aneurysm or dissection, given the description and location of the pain. He got aspirin in the ER. Continue his Plavix, his Crohn's medications, and other medications. If the troponins are negative, proceed to a stress test in the morning; planning a chemical stress test because of his dyspnea on exertion. His diet will be a carb-controlled diet to decrease intake of sweets and this was advised for after discharge too. DEEP VENOUS THROMBOSIS PROPHYLAXIS: SCDs. CODE STATUS: FULL CODE. ATTESTATION: The patient is expected to be discharged or transferred to another facility within 96 hours: Yes. cc: Miguel Angel Rust DO TD: 03/25/2020 17:45 MTDD
[2020-03-25] MEDS ORDERED: ATORVASTATIN 40 MG TABLET PO SCH (21:00)
[2020-03-25] MEDS ORDERED: MESALAMINE 800 MG PO SCH (21:00)
--- NOTE | 2020-03-25 21:04 | CT Report ---
PROCEDURE: ANGIO CHEST W/WO INDICATIONS: chest pain CONTRAST: IV CONTRAST: Optiray 320 ml: 100 TECHNIQUE: After the administration of intravenous contrast, 2 mm thick sections acquired from the pulmonary api frieda to the posterior costophrenic angles. 3-dimensional maximum intensity projection (MIP) coronal a nd sagittal reformats were then acquired through the thorax. For radiation dose reduction, the follow ing was used: automated exposure control, adjustment of mA and/or kV according to patient size. COMPARISON: None available FINDINGS: Image quality: Excellent. Pulmonary arteries: Pulmonary arteries are normal in size, and demonstrate no intraluminal filling d efects to suggest central pulmonary embolism. Lungs and pleura: Lungs demonstrate mild upper lobe paraseptal emphysematous changes. Minimal ground glass opacity at both lung bases posteriorly, likely dependent parenchymal changes. No dense consolid ations. No pleural effusions or pneumothorax. Central and peripheral airways are patent. Mediastinum: Heart size is normal, without pericardial effusion. Coronary artery calcification versu s stenting. No mediastinal or hilar adenopathy. Scattered mediastinal calcifications. Thoracic aorta is normal in caliber and enhancement. Esophagus is normal in caliber, without hiatal hernia. Bones and chest wall: No suspicious bony lesions. Ribs and thoracic spine appear intact throughout. The thyroid is normal. No axillary or supraclavicular adenopathy. Abdomen: Visualized upper abdominal solid organs appear normal in the early arterial phase of enhanc ement. IMPRESSION: 1. No pulmonary embolus. 2. No acute aortic pathology. 3. Findings of probable calcified mediastinal lymph nodes. 4. Mild emphysema. Reviewed by: Angle Peralta MD on 03/25/2020 9:02 PM PDT Approved by: Angle Peralta MD on 03/25/2020 9:02 PM PDT Station ID: [id number]
--- NOTE | 2020-03-25 21:13 | CT Report ---
PROCEDURE: ANGIO ABDOMEN W/WO INDICATIONS: chest pain radiating to abdomen TECHNIQUE: Axial CT images were acquired in the angiographic phase following contrast administration used for prior CT angiogram of the chest. Coronal and sagittal reformations were created. COMPARISON: None. FINDINGS: Solid organs: The liver is slightly prominent and mildly diffusely hypodense. No discrete lesions enh ancing on the arterial phase. The gallbladder surgically absent. No adrenal nodules. Spleen is normal size and contains a few scattered calcifications. The pancreas enhances normally. There is symmetric enhancement of both kidneys. No hydronephrosis. A coarse calcification is present in the upper right pararenal space behind the liver. Nodes and vessels: The abdominal aorta demonstrates moderate calcific atherosclerosis but maintains n ormal caliber. There is calcification at the celiac and SMA origins without poststenotic dilatation. There are dual renal arteries bilaterally. The inferior mesenteric artery is patent. The inferior uvaldo a cava is of normal caliber. No retroperitoneal adenopathy or mass. Ureters are normal caliber withou t calcification. Bowel and peritoneum: Stomach and upper abdominal bowel loops are normal. There is a short segment of small bowel in the right lower quadrant with mucosal enhancement and moderate adjacent vascular engo rgement. There appears to be focal wall thickening. There is no associated fluid collection. The desc ending colon demonstrates mild diverticulosis without acute diverticulitis. Pelvis: There are brachytherapy seeds in the prostate gland. Small bilateral fat-containing inguinal hernias. The urinary bladder is normal. There is no pelvic adenopathy. Pelvic vasculature is of loli l caliber. Bones and soft tissues: There is a heterogeneous mixed lytic and scribed lesion in the right posterio r ilium without destruction of adjacent cortex. This may be an enchondroma. Osseous structures are ot herwise intact. Degenerative disc change at the L5-S1 level. There are metallic [place] in the right paramedian subcutaneous tissues of remote surgery. IMPRESSION: 1. There are nonspecific and incompletely imaged changes of mild inflammation and focal segment of th e right lower quadrant small bowel. This raises the possibility of inflammation, infection or inflamm atory bowel disease. Correlate clinically. 2. Atherosclerosis without acute abdominal aortic pathology. 3. Mild hepatic steatosis. 4. Surgically absent gallbladder. 5. Brachytherapy seeds in the prostate gland. Reviewed by: Angle Peralta MD on 03/25/2020 9:11 PM PDT Approved by: Angle Peralta MD on 03/25/2020 9:11 PM PDT Station ID: [id number]
[2020-03-25] MEDS: FAMOTIDINE 20 MG TABLET PO SCH (21:37)
[2020-03-26] MEDS: SODIUM CHLORIDE FLUSH 0.9% 10 ML SYRINGE IVP SCH ×2 (00:30→08:41)
[2020-03-26 05:12] LABS: CALCIUM 9.4 mg/dL (8.5-10.3); CREATININE 1.1 mg/dL (0.6-1.2)
[2020-03-26] MEDS: FAMOTIDINE 20 MG TABLET PO SCH (08:37)
[2020-03-26] MEDS ORDERED: CLOPIDOGREL 75 MG TABLET PO SCH (09:00)
[2020-03-26] MEDS ORDERED: FENOFIBRATE 48 MG TABLET PO SCH (09:00)
[2020-03-26] MEDS ORDERED: TAMSULOSIN 0.4 MG CAPSULE PO SCH (09:00)
[2020-03-26] MEDS ORDERED: MESALAMINE 400 MG PO SCH (09:30)
[2020-03-26] MEDS ORDERED: REGADENOSON 0.4 MG/5 ML SYRINGE IVP ONE ×2 (12:48→14:24)
[2020-03-26] MEDS ORDERED: AMINOPHYLLINE 250 MG/10 ML VIAL ONE (12:48)
--- NOTE | 2020-03-26 15:34 | Nuclear Medicine Report ---
PROCEDURE: Rest and pharmacological stress myocardial perfusion SPECT with gated imaging and ejection fraction INDICATIONS: Chest pain RADIOPHARMACEUTICAL: 8.6 mCi Tc-99m tetrafosmin IV at rest and 23.9 mCi Tc-99m tetrafosmin IV at pea k effect of pharmacological stress. A [id number] was performed. TECHNIQUE: Radiopharmaceutical was injected at peak stress test, and also at rest. SPECT images wer e obtained. SPECT myocardial perfusion images were displayed in short axis, horizontal long axis, an d vertical long axis views. Gated images were reviewed using [employer] software. COMPARISON: None available. CARDIAC STRESS: A pharmacologic stress test was performed under the supervision of an attending staff, using an infus ion of Lexiscan. FINDINGS: Raw data: There is good myocardial uptake of radiotracer. No significant motion artifacts. Left ventricle function: Gated images demonstrate normal left ventricular wall thickening. No segme ntal wall motion abnormalities. No transient ischemic dilation; TID is 0.96 (normal less than 1.3). Left ventricle resting end diastolic volume is 67 mL. Left ventricle stress ejection fraction is 6 5%; normal range is above 45%. Myocardial perfusion: There is normal relative distribution of activity in the right and left ventri cular myocardium. No fixed or reversible perfusion defects. IMPRESSION: 1. Normal myocardial perfusion images without perfusion defects to suggest ischemia or infarct. 2. Left ventricular ejection fraction within normal limits without segmental wall motion abnormalitie s. Findings discussed with Dr. Webb on 03/26/2020 at 3:30 PM. PQRS ATTESTATIONS: Measure 322 - Is this imaging test primarily performed on a low-risk surgery patient for preoperative evaluation within 30 days preceding their low-risk non-cardiac surgery? Low-risk surgery is defined as cardiac or myocardial infarction less than 1%, including (but not limited to) endoscopic pr ocedures, superficial procedures, cataract surgery, and excisional breast surgery: Answer: No Measure 323 - Is this imaging test performed primarily for the monitoring of an asymptomatic patient who had percutaneous coronary intervention on the visit date or within 2 years of the visit date? An swer: No Measure 324 - Is this imaging test performed primarily for the initial detection and risk assessment on an asymptomatic, low coronary heart disease patient? Low CHD risk definition = clinicians should consider the maximum number of available patient factors used to estimate risk based on [place] (A TP III criteria), typically age, gender, diabetes, smoking status, and use of blood pressure medicati on, and integrate age appropriate estimates for missing elements, such as LDL or standard blood press ure. Answer: No Reviewed by: Khanh Callaway MD on 03/26/2020 3:32 PM PDT Approved by: Khanh Callaway MD on 03/26/2020 3:32 PM PDT Station ID: [id number]
--- NOTE | 2020-03-26 15:43 | Discharge Plan ---
Discharge Plan Problem Reviewed?: Yes Disposition: Home, Self Care Condition: Stable Diet: Regular (Low starch and low sweets diet advised) Activity Restrictions: Activity as Tolerated Weight Bearing: Full Weight Health Concerns: You were in the hospital in Observation status to evaluate chest pain and shortness of breath. There was no heart attack. You passed your stress test. You should see your PCP and/or Liquor Establishment Manager for further testing of your lungs and esophagus potentially. Resume taking all your medicines as pre-hospitalization. Plan of Treatment: As above. Care Goals: Improvement in symptoms and stabilization are the goals. Assessment: Patient understands and is agreeable with the plan. No Smoking: If you smoke, Please STOP! Call for help. Follow-up with: Miguel Angel Rust DO [Primary Care Provider] -
--- NOTE | 2020-03-26 15:49 | DISCHARGE SUMMARY ---
Discharge Summary Admit Date: 03/25/20 Discharge Date: 03/26/20 Discharging Provider: Dr Sophia Webb Primary Care Provider: Dr Miguel Angel Rust Code Status: Attempt Resuscitation Condition at Discharge: Stable Discharge Disposition: 01 Home, Self Care - HPI History of Present Illness: This is an 84 y/o WM with history of remote ID and coronary stenting a pproximately 20 years ago, sleep apnea not using CPAP, elevated triglycerides in the 700's, GERD, Crohn's disease on treatment and prostate cancer. Also, he was just here in Observation status 1 week ago for a TIA (symptoms were garbled speech), and the work-up showed mild carotid stenosis, and an Echo showed preserved LVEF but inferior hypokinesis was reported, aortic root diameter was normal. He was started on Plavix and he stopped his daily aspirin. He presents now with reports of 2 weeks of increasing dyspnea on exertion, for which he was prescribed new sl NTG prn, but no testing was apparently ordered. Today he developed anterior chest pain while using his home computer, took 3 sl NTG and the chest pain resolved but the same feeling "moved" to his right lower abdominal quadrant, then recurred in the chest and he took 2 more sl NTG. In the ER, his EKG showed frequent ventricular couplets, inferior Q waves and abnormal biphasic T waves in diffuse leads. He is being placed in Observation status for chest pain work-up. I spoke to him about his wishes for Code Status and he wants to be a Full Code. - CONSULTS | PROCEDURES Procedures: CTA abdomen and chest Pharmaceutical stress test with Nuclear imaging - HOSPITAL COURSE Hospital Course: 1) Chest pain There were no further episodes of chest pain. His troponins were normal. His echo haad just been done 1 week ago and was not repeated. He underwent stress testing using Lexiscan. This showed a decrease in ventricular ectopy and no new ischemic EKG changes; the nuclear images showed no reversible ischemia. 2) Abdominal pain In order to R/O aortic aneurysm or dissection, he underwent CTA of chest and abdomen imaging which showed calcified mediastinal lymph nodes, normal aortic diameter and no dissection, moderate mural calcific aortic atherosclerosis, no gallbladder present, mild hepatic steatosis, brachytherapy seeds seen in the prostate gland, and a short segment of small bowel, in the right lower quadrant, had findings consistent with inflammation (like Crohn's). He declined getting any antibiotics started for this. 3) History of CAD with stents No changes were made in his medical management. 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 5) Hypertriglyceridemia A fasting lipid panel had just been done 1 week ago and showed total cholesterol: 243, LDL: 31, HDL: 49, Triglycerides: 243. I discussed his diet with him and at bedside and he admitted to eating alot of sweets, cookies, 3 spoonfuls of sugar in a cup of coffee. A Nutrition consult was done, who offered recommendations. 6) CKD stage III BUN/creat were 12/1.4 and 12/1.1 while here. 7) Abnormal EKG As above. 8) History of Crohn's disease He was kept on his same diet and meds. - ALLERGIES Allergies/Adverse Reactions: Allergies Allergy/AdvReac Type Severity Reaction Status Date / Time latex Allergy Rash Verified 03/25/20 15:41 Penicillins Allergy Rash Verified 03/25/20 15:41 nitrofurantoin AdvReac Unknown Verified 03/25/20 15:41 [From Macrobid] - MEDICATIONS Home Medications: Ambulatory Orders Medication Instructions Recorded Confirmed Fenofibrate Nanocrystallized 160 mg PO DAILY 01/20/15 03/25/20 [Triglide] Mesalamine [Delzicol] 800 mg PO BID 01/20/15 03/25/20 Metoprolol Succinate [Toprol Xl] 50 mg PO DAILY 01/20/15 03/25/20 Omeprazole 20 mg PO BID 01/20/15 03/25/20 Alfuzosin HCl [Alfuzosin HCl ER] 10 mg PO DAILY 03/19/20 03/25/20 Calcium Carbonate/Vitamin D3 1 tab PO DAILY 03/19/20 03/25/20 [Calcium 500 mg-Vit D3 600 Unit] Clopidogrel [Plavix] 75 mg PO DAILY #30 tablet 03/19/20 03/25/20 Nitroglycerin 0.4 mg PO 1-2XD PRN 03/19/20 03/25/20 Rosuvastatin Calcium 20 mg PO QPM 03/19/20 03/25/20 - PHYSICAL EXAM AT DISCHARGE General Appearance: positive: No acute distress, Alert Eyes Bilateral: positive: Normal inspection, EOMI ENT: positive: ENT inspection nml, No signs of dehydration Neck: positive: Nml inspection, No JVD Respiratory: positive: No respiratory distress Cardiovascular: positive: Regular rate & rhythm, No murmur Abdomen: positive: Non-tender, No organomegaly, Nml bowel sounds Skin: positive: Color nml Extremities: positive: Non-tender, No pedal edema Neurologic/Psychiatric: positive: Oriented x3, Other (Non-focal) - LABS Result Diagrams: 03/25/20 15:41 03/26/20 04:45 - DIAGNOSTIC IMAGING Diagnostic Imaging Results: Final report reviewed - FOLLOW UP Follow Up: See PCP and Process Server in routine follow-up. - TIME SPENT Time Spent in Discharge (Minutes): 30
[2020-03-26 16:20] VITALS: BP 141/66
--- NOTE | 2020-03-29 07:30 | CARDIAC PROCEDURE NOTE ---
DATE OF SERVICE: 03/26/2020 Physician: Sophia Webb MD INDICATION: Chest pain. CARDIAC RISK FACTORS: Male gender, elevated triglycerides and cholesterol, history of CAD with stenting 20 years ago. DESCRIPTION OF PROCEDURE: After signing informed consent, the patient underwent a Lexiscan pharmaceutical stress test with nuclear myocardial perfusion imaging. RESTING HEART RATE: 72. PEAK HEART RATE: 108. RESTING BLOOD PRESSURE: 130/76. PEAK BLOOD PRESSURE: 129/72. Lexiscan was infused per protocol. The patient developed flushing, headache, shortness of breath, then chest pain, which he rated 9/10. It decreased in the chest but spread to his neck and down his arms. Aminophylline 25 mg IV x 2 was given for reversal of all symptoms. RESTING EKG: Normal sinus rhythm, ventricular bigeminy and frequent ventricular couplets, scooping ST segments in leads I, II, V3 through V6. EKG AT PEAK: PVCs decreased, no change in the scooping ST segments. SUMMARY 1. Abnormal resting EKG. 2. No change in nonspecific ST-segments already present, decrease in ventricular ectopy during pharmaceutical stress. 3. Nuclear images reported separately. 4. This patient's cardiac risk based on all the above: Moderate-High. cc: Miguel Angel Rust DO TD: 03/26/2020 18:15 MTDD
== END 2020-03-26 16:20 | disposition home or self-care (01) ==
LOC: EDUNIT# → ED 15:28 → MS2 16:26
PROVIDERS: ADMIT Internal Medicine; ATTEND Internal Medicine
DX: R07.89 Other chest pain (principal); R10.9 Unspecified abdominal pain; I70.0 Atherosclerosis of aorta; I89.8 Other specified noninfective disorders of lymphatic vessels and lymph nodes; I25.10 Atherosclerotic heart disease of native coronary artery without angina pectoris; Z95.5 Presence of coronary angioplasty implant and graft; I25.2 Old myocardial infarction; E78.1 Pure hyperglyceridemia; N18.3 Chronic kidney disease, stage 3 (moderate); R94.31 Abnormal electrocardiogram [ECG] [EKG]; K50.90 Crohn's disease, unspecified, without complications; G47.30 Sleep apnea, unspecified; Z91.19 Patient's noncompliance with other medical treatment and regimen; Z87.891 Personal history of nicotine dependence; Z79.02 Long term (current) use of antithrombotics/antiplatelets; K21.9 Gastro-esophageal reflux disease without esophagitis; Z85.46 Personal history of malignant neoplasm of prostate; J43.9 Emphysema, unspecified
CPT/HCPCS: 36415; 71045; 71275; 74175; 78452; 80048; 80053; 83690; 84484; 85025; 93005; 93017; 99285; A9270; A9500; G0378; J2785; Q9967